=== PATIENT | female | born 1975 | race Two or more races ===

== ENCOUNTER 2017-04-01 17:35 | Emergency (ER) | payer OTHER ==
[2017-04-01 17:40] VITALS: BP 110/66; PULSE 82; TEMP 98.4; BMI 29.2
--- NOTE | 2017-04-01 18:37 | PDOC ---
History of Present Illness - General History Source: Patient, Old Records Exam Limitations: No Limitations - History of Present Illness Initial Comments: 04/01/17 18:59 The patient is a 41 year old female, A4 with a significant past medical history of ectopic pregnancies (x4), who presents to the emergency department after being sent by her PMD for rule out ectopic . The patient reports that her last menstrual cycle was in December 2016. She notes that prior to these missed periods, her menstrual cycle was usually normal and on time. She does report mild left lower quadrant tenderness, without radiation or modifying factors. She does note that she does have fibroids and cysts on the left side and thinks that this may be the cause. The patient denies chest pain, shortness of breath, headache and dizziness. Denies fever, chills, nausea, vomit, diarrhea and constipation. Denies dysuria, frequency, urgency and hematuria. Allergies: None Past surgical history: None reported Social history: No alcohol, tobacco or drug use reported <Sky Ceja - Last Filed: 04/01/17 18:59> <Silver Frias - Last Filed: 04/01/17 20:08> - General Chief Complaint: Pain Stated Complaint: PELVIC PAIN Time Seen by Provider: 04/01/17 18:35 Past History <Syk Ceja - Last Filed: 04/01/17 18:59> - Past Medical History Suicide Attempt (Hx): No Other medical history: NONE - Reproductive History Is Patient Now?: (unk) (#): 5 Para: 1 Cervical CA: No Dysfunctional Uterine Bleeding: No Ectopic : No Endometrial CA: No Polycystic Ovaries: No Therapeutic (s) & number: No Tubal Ligation: No Spontaneous : 4 - Immunization History Td Vaccination: Yes Immunization Up to Date: Yes - Psycho/Social/Smoking Cessation Hx Anxiety: No Suicidal Ideation: No Smoking Status: No Smoking History: Never smoked Number of Cigarettes Smoked Daily: 0 Cigars Per Day: 0 Hx Alcohol Use: No Drug/Substance Use Hx: No Substance Use Type: None <Silver Frias - Last Filed: 04/01/17 20:08> - Past Medical History Allergies/Adverse Reactions: Allergies Allergy/AdvReac Type Severity Reaction Status Date / Time No Known Allergies Allergy Verified 04/01/17 17:40 Home Medications: Ambulatory Orders Ibuprofen [Motrin -] 600 mg PO TID #21 tablet 05/17/15 Review of Systems - Review of Systems Able to Perform ROS?: Yes Comments:: 04/01/17 18:59 CONSTITUTIONAL: No fever, no chills, no fatigue EYES: No visual changes ENT: No ear pain, no sore throat CARDIOVASCULAR: No chest pain, no palpitations RESPIRATORY: No cough, no SOB GI: (+) Left lower quadrant abdominal pain. No nausea, no vomiting, no constipation, no diarrhea GENITOURINARY: No dysuria, no frequency, no hematuria MUSKULOSKELETAL: No backpain, no joint pain, no myalgias SKIN: No rash NEURO: No headache <Sky Ceja - Last Filed: 04/01/17 18:59> *Physical Exam - Vital Signs Last Vital Signs Temp Pulse Resp BP Pulse Ox 98.4 F 82 20 110/66 98 04/01/17 17:36 04/01/17 17:36 04/01/17 17:36 04/01/17 17:36 04/01/17 17:36 <Sky Ceja - Last Filed: 04/01/17 18:59> - Vital Signs Last Vital Signs Temp Pulse Resp BP Pulse Ox 98.4 F 82 20 110/66 98 04/01/17 17:36 04/01/17 17:36 04/01/17 17:36 04/01/17 17:36 04/01/17 17:36 <Silver Frias - Last Filed: 04/01/17 20:08> ED Treatment Course - RADIOLOGY Radiology Studies Ordered: Category Date Time Status TRANSVAGINAL US PREG [US] Stat Ultrasound 04/01/17 18:36 Ordered <Silver Frias - Last Filed: 04/01/17 20:08> Medical Decision Making - Medical Decision Making 04/01/17 20:06 Patient is a well-appearing 41-year-old female who presents with 3 months of amenorrhea. Patient is negative. There are no acute issues at this time. Will discharge with PMD follow-up further evaluation and treatment. <Silver Frias - Last Filed: 04/01/17 20:08> *DC/Admit/Observation/Transfer - Attestations Scribe Attestion: 04/01/17 19:00 Documentation prepared by Sky Ceja, acting as medical aide for Silver Frias MD <Sky Ceja - Last Filed: 04/01/17 18:59> - Attestations Physician Attestion: 04/01/17 20:06 The documentation was prepared by the scribe under my direct supervision. I have reviewed the documentation which correctly represents the findings, medical decision-making and critical action taken by me. <Silver Frias - Last Filed: 04/01/17 20:08> Diagnosis at time of Disposition: Amenorrhea - Discharge Dispostion Disposition: HOME Condition at time of disposition: Stable - Referrals Referrals: pmd, one week [Other] - Patient Instructions Additional Instructions: Urine . Please follow-up with your TICKET WRITER or primary care physician for evaluation of amenorrhea. Return immediately for vaginal bleeding, severe abdominal pain.
== END 2017-04-01 20:16 | disposition home or self-care (01) ==
LOC: JER 17:35
DX: N91.2 Amenorrhea, unspecified (principal); D25.9 Leiomyoma of uterus, unspecified; N83.202 Unspecified ovarian cyst, left side
CPT/HCPCS: 84703; 99283-25

== ENCOUNTER 2017-04-24 14:27 | Inpatient (IN) | payer SELFPAY ==
[2017-04-24 14:30] VITALS: BMI 25.7
[2017-04-24] MEDS ORDERED: morphine CARPU-JECT 2 MG/1 ML DISP.SYRIN IVPUSH ONE (16:39)
--- NOTE | 2017-04-24 16:39 | PDOC ---
History of Present Illness <Michael Hdez - Last Filed: 04/24/17 16:56> - General History Source: Patient Exam Limitations: No Limitations - History of Present Illness Initial Comments: 04/24/17 17:50 The patient is a 41 year old female(A4), with a significant past medical history of ovarian cysts and fibroids, who presents to the emergency department complaining of left lower quadrant pain for 1 day. The patient reports her pain has been constant with associated nausea since this morning. The patient also reports mild pain in the right lower quadrant, but states her left sided pain is more severe. Patient reports she had similar pain 1 year ago, during which her JEWEL CUPPING MACHINE OPERATOR diagnosed her with ovarian cysts. Patient states she had an US done 1 week ago for evaluation of her pelvic pain and to rule out . The US revealed uterine fibroids, thickened endometrium, and small right ovarian cyst( rule out hemorrhagic versus debris laden cyst). Patient states the pain is the worst it has ever been. She denies any vomiting, diarrhea, or constipation. She reports a subjective fever, but denies chills, headache, or dizziness. She denies any vaginal bleeding, vaginal discharge, vaginal odor, dysuria, hematuria , frequency, or urgency. Patient states she has not taken anything for the pain. The patient reports her last menstrual period was 01/17/17, and states she normally gets her periods regularly. Patient reports she had both a urine and blood test last week, which were both negative. Allergies: None reported Past Surgical History: None reported Social History: Non smoker. No ETOH or drug use. JEWEL CUPPING MACHINE OPERATOR: Dr. Haylee Whyte <Adolfo Sexton - Last Filed: 04/24/17 17:50> <Diana Oliveros - Last Filed: 04/25/17 04:32> - General Chief Complaint: Pain Stated Complaint: PAIN Time Seen by Provider: 04/24/17 15:12 Past History - Past Medical History Suicide Attempt (Hx): No Other medical history: none - Reproductive History (#): 5 Para: 1 Cervical CA: No Dysfunctional Uterine Bleeding: No Ectopic : No Endometrial CA: No Polycystic Ovaries: No Therapeutic (s) & number: No Tubal Ligation: No Spontaneous : 4 - Immunization History Td Vaccination: Yes Immunization Up to Date: Yes - Psycho/Social/Smoking Cessation Hx Anxiety: No Suicidal Ideation: No Smoking Status: No Smoking History: Never smoked Have you smoked in the past 12 months: No Number of Cigarettes Smoked Daily: 0 Cigars Per Day: 0 Information on smoking cessation initiated: No Hx Alcohol Use: No Drug/Substance Use Hx: No Substance Use Type: None <LemuelMichael - Last Filed: 04/24/17 16:56> <Adolfo Sexton - Last Filed: 04/24/17 17:50> <Diana Oliveros - Last Filed: 04/25/17 04:32> - Past Medical History Allergies/Adverse Reactions: Allergies Allergy/AdvReac Type Severity Reaction Status Date / Time No Known Allergies Allergy Verified 04/24/17 14:27 Home Medications: Ambulatory Orders Levofloxacin [Levaquin -] 500 mg PO DAILY #7 tablet 04/24/17 Review of Systems - Review of Systems Able to Perform ROS?: Yes Comments:: 04/24/17 17:50 CONSTITUTIONAL: Present: +Subjective Fever No reported: Chills, Diaphoresis, Generalized Weakness, Malaise, Loss of Appetite HEENT: No reported: Rhinorrhea, Nasal Congestion, Throat Pain, Throat Swelling, Difficulty Swallowing, Mouth Swelling, Ear Pain, Eye Pain, Visual Changes CARDIOVASCULAR: No reported: Chest Pain, Syncope, Palpitations, Irregular Heart Rate, Lightheadedness, Peripheral Edema RESPIRATORY: No reported: Cough, Shortness of Breath, SOB with Exertion, Orthopnea, Wheezing , Stridor, Hemoptysis GASTROINTESTINAL: Present: +Left lower quadrant pain, +Nausea No reported: Abdominal Distension, Vomiting, Diarrhea, Constipation, Melena, Hematochezia GENITOURINARY: Present: +Pelvic pain No reported: Dysuria, Frequency, Urgency, Hesitancy, Flank Pain, Genital Pain MUSCULOSKELETAL: No reported: Myalgia, Arthralgia, Joint Swelling, Back pain, Neck Pain SKIN: No reported: Rash, Itching, Pallor HEMEATOLOGIC/IMMUNOLOGIC: No reported: Easy Bleeding, Easy Bruising, Lymphadenopathy, Frequent infections ENDOCRINE: No reported: Unexplained Weight Gain, Unexplained Weight Loss, Heat Intolerance , Cold Intolerance NEUROLOGIC: No reported: Headache, Focal Weakness, Paresthesias, Vertigo, Lightheadedness, Unsteady Gait, Seizure, Mental Status Changes, Incontinence PSYCHIATRIC: No reported: Anxiety, Depression <Sexton,Giomilsy - Last Filed: 04/24/17 17:50> *Physical Exam - Vital Signs Last Vital Signs Temp Pulse Resp BP Pulse Ox 99.8 F H 100 H 18 122/74 100 04/24/17 14:28 04/24/17 14:28 04/24/17 14:28 04/24/17 14:28 04/24/17 14:28 <Michael Hdez - Last Filed: 04/24/17 16:56> - Vital Signs Last Vital Signs Temp Pulse Resp BP Pulse Ox 99.8 F H 100 H 18 122/74 100 04/24/17 14:28 04/24/17 14:28 04/24/17 14:28 04/24/17 14:28 04/24/17 14:28 - Physical Exam Comments: 04/24/17 17:50 GENERAL: The patient is awake, alert, and fully oriented, Nontoxic - in no acute distress. HEAD: Normocephalic, atraumatic. EYES: extraocular movements intact, sclera anicteric, conjunctiva clear. ENT: Normal voice, Moist mucous membranes. NECK: Normal range of motion, supple LUNGS: Breath sounds equal, clear to auscultation bilaterally. No wheezes, no rhonchi, no rales. HEART: Regular rate and rhythm, normal S1 and S2 without murmur, rub or gallop. ABDOMEN:LLQ tenderness, mild suprabpuci tenderness, nor ebound/guarding, no CVA tenderness EXTREMITIES: Normal range of motion, no edema. No clubbing or cyanosis. No cords , erythema, or tenderness. NEUROLOGICAL: No facial asymmetry, Normal speech, PSYCH: Normal mood, normal affect. SKIN: Warm, Dry, normal turgor <Stephanie Sextonomilsy - Last Filed: 04/24/17 17:50> - Vital Signs Last Vital Signs Temp Pulse Resp BP Pulse Ox 98.4 F 90 16 109/64 100 04/24/17 19:14 04/24/17 19:14 04/24/17 19:14 04/24/17 19:14 04/24/17 19:14 <Diana Oliveros - Last Filed: 04/25/17 04:32> ED Treatment Course - LABORATORY CBC & Chemistry Diagram: 04/24/17 16:51 04/24/17 16:51 - Medications Given in the ED: ED Medications Discontinued Medications Generic Name Dose Route Start Last Admin Trade Name Freq PRN Reason Stop Dose Admin Morphine Sulfate 2 mg 04/24/17 16:39 04/24/17 16:57 Morphine Injection - IVPUSH 04/24/17 16:40 2 mg ONCE ONE Administration <Adolfo Sexton - Last Filed: 04/24/17 17:50> - LABORATORY CBC & Chemistry Diagram: 04/24/17 23:17 04/24/17 16:51 - ADDITIONAL ORDERS Additional order review: Laboratory Results 04/24/17 04/24/17 19:01 16:51 Sodium 139 Potassium 3.9 Chloride 103 Carbon Dioxide 27 Anion Gap 9 BUN 9 Creatinine 0.6 Creat Clearance w eGFR > 60 Random Glucose 104 Calcium 8.8 Total Bilirubin 1.3 H AST 24 ALT 28 D Alkaline Phosphatase 68 Total Protein 7.9 Albumin 3.9 Urine Color Susan Urine Appearance Clear Urine pH 5.0 Urine Protein 2+ H Urine Glucose (UA) Negative Urine Ketones Trace H Urine Blood 2+ H Urine Nitrite Negative Urine Bilirubin Negative Urine Urobilinogen 2.0 e.u/dl H Ur Leukocyte Esterase Trace H Urine RBC 50 Urine WBC 5 Ur Epithelial Cells Few Urine Bacteria Many Urine Mucus Moderate Urine HCG, Qual Negative 04/24/17 16:51 RBC 4.66 MCV 88.6 MCHC 34.0 RDW 12.2 MPV 8.4 Neutrophils % 79.4 Lymphocytes % 13.9 Monocytes % 6.2 Eosinophils % 0.0 D Basophils % 0.5 - Medications Given in the ED: ED Medications Discontinued Medications Generic Name Dose Route Start Last Admin Trade Name Freq PRN Reason Stop Dose Admin Morphine Sulfate 2 mg 04/24/17 16:39 04/24/17 16:57 Morphine Injection - IVPUSH 04/24/17 16:40 2 mg ONCE ONE Administration Morphine Sulfate 4 mg 04/24/17 19:20 04/24/17 19:51 Morphine Injection - IVPUSH 04/24/17 19:21 4 mg ONCE ONE Administration <Diana Oliveros - Last Filed: 04/25/17 04:32> Medical Decision Making - Medical Decision Making 04/24/17 16:59 41y fibroids, cysts, presents with LLQ pain x 1 day associated with some nausea, vomiting this AM with subjectieve fever, on exam pt has mild tenderness in the LLQ/adnexa. will obtain blood work will obtain US morphone ifor pain consider possible TOA, oarian cyst, fibroids, diverticulitis A portion of this note was documented by scribe services under my direction. I have reviewed the details of the note, within reason, and agree with the documentation with the following case summary and management plan written by me <Michael Hdez - Last Filed: 04/24/17 16:56> - Medical Decision Making 04/25/17 04:28 I received pt on signout. Pt comes with abdominal pain. Sono shows free fluid in the pelvis, as well as ovarian cyst and a uterine mass that is likely her previous fibroid. Pt has the same findings on Ct scan. She has a UTI and was given levaquin and toradol by myself. Earlier she was teated with morphine. Pt continues to have fever and pelvic pain. I sent off GC/chlamydia urine culture and pt was treated with normal saline and she was admitted to med surg to the hospitalist, as she continues to have rebound and guarding of her abdomen, and she continues to complain of pain. 04/25/17 04:31 Repeat CBC shows a stable Hb/HCT, so free fluid in the pelvis is likely not blood and pt is likely not having hemorrhagic cyst or other bleeding into the pelvis. <Diana Oliveros - Last Filed: 04/25/17 04:32> *DC/Admit/Observation/Transfer <Michael Hdez - Last Filed: 04/24/17 16:56> - Attestations Scribe Attestion: 04/24/17 17:51 Documentation prepared by Adolfo Sexton, acting as medical appointment scheduler for Michael Hdez MD. <Adolfo Sexton - Last Filed: 04/24/17 17:50> - Discharge Dispostion Admit: Yes <Diana Oliveros - Last Filed: 04/25/17 04:32> Diagnosis at time of Disposition: Fibroid uterus, Cystitis, Ovarian cyst, Abdominal pain, Free fluid in pelvis - Discharge Dispostion Condition at time of disposition: Stable - Prescriptions - Referrals - Patient Instructions
[2017-04-24] MEDS ORDERED: morphine CARPU-JECT 2 MG/1 ML DISP.SYRIN ONE (16:42)
[2017-04-24 17:24] LABS: BASOPHIL 0.5 % (0-2.0); MCH 30.1 pg (25.7-33.7); MEAN CELL VOLUME 88.6 fl (80-96); MEAN PLT VOLUME 8.4 fl (7.5-11.1); NEUTROPHILS 79.4 % (42.8-82.8); PLATELET COUNT 266 K/MM3 (134-434); RDW 12.2 % (11.6-15.6); WHITE BLOOD COUNT 12.4 K/mm3 (4.0-10.0)
[2017-04-24 17:52] LABS: ALBUMIN 3.9 g/dl (3.4-5.0); ANION GAP 9 (8-16); BILIRUBIN,TOTAL 1.3 mg/dL (0.2-1.0); CALCIUM 8.8 mg/dL (8.5-10.1); CO2 27 mmol/L (21-32); CREATININE 0.6 mg/dL (0.55-1.02); GLUCOSE,RANDOM 104 mg/dL (74-106); SGOT/AST 24 U/L (15-37); SGPT/ALT 28 U/L (12-78)
[2017-04-24] MEDS ORDERED: morphine CARPU-JECT 4 MG/1 ML DISP.SYRIN IVPUSH ONE (19:20)
[2017-04-24 19:33] LABS: URINE APPEARANCE CLEAR; URINE BILIRUBIN NEGATIVE (NEGATIVE); URINE COLOR AMBER; URINE GLUCOSE (UA) NEGATIVE (NEGATIVE); URINE KETONE TRACE (NEGATIVE); URINE NITRITE NEGATIVE (NEGATIVE); URINE UROBILINOGEN 2.0 E.U/dl E.U./dl (0.2-1.0)
[2017-04-24] MEDS ORDERED: morphine CARPU-JECT 4 MG/1 ML DISP.SYRIN ONE (19:46)
[2017-04-24 19:54] LABS: ALK PHOS 68 U/L (45-117); TOT PROT 7.9 g/dl (6.4-8.2)
[2017-04-24 19:54] LABS: URINE BLOOD 2+ (NEGATIVE); URINE LEUK ESTERASE TRACE (NEGATIVE); URINE PROTEIN 2+ (NEGATIVE)
[2017-04-24 20:41] LABS: URINE BACTERIA MANY /hpf (NONE SEEN); URINE MUCUS MODERATE; URINE RBC 50 /hpf (0-3); URINE WBC 5 /hpf (3-5)
[2017-04-24] MEDS ORDERED: SODIUM CHLORIDE 0.9% 500 ML INFUS.BAG IV ONE ×2 (21:08→23:22)
[2017-04-24] MEDS ORDERED: LEVOFLOXACIN 500 MG IVPB 100 ML IVPB ONE ×2 (21:08→21:24)
[2017-04-24] MEDS ORDERED: KETOROLAC TROMETHAMINE 30 MG/1 ML VIAL IVPUSH ONE (22:43)
[2017-04-24] MEDS ORDERED: KETOROLAC TROMETHAMINE 30 MG/1 ML VIAL ONE (23:07)
[2017-04-24] MEDS ORDERED: ACETAMINOPHEN 325 MG TABLET (FP) PO ONE (23:22)
[2017-04-24 23:47] LABS: BASOPHIL 0.5 % (0-2.0); MCH 30.3 pg (25.7-33.7); MCHC 34.5 g/dl (32.0-36.0); MEAN CELL VOLUME 87.8 fl (80-96); MEAN PLT VOLUME 8.1 fl (7.5-11.1); NEUTROPHILS 81.4 % (42.8-82.8); PLATELET COUNT 222 K/MM3 (134-434); RDW 12.2 % (11.6-15.6); WHITE BLOOD COUNT 11.8 K/mm3 (4.0-10.0)
[2017-04-25] MEDS ORDERED: ACETAMINOPHEN 325 MG TABLET (FP) ONE (00:09)
[2017-04-25] MEDS ORDERED: AZITHROMYCIN 1 GM PACKET PO ONE (00:13)
[2017-04-25] MEDS ORDERED: morphine CARPU-JECT 2 MG/1 ML DISP.SYRIN IVPUSH PRN (00:15)
[2017-04-25] MEDS ORDERED: CEFTRIAXONE 2 GM in DEXTROSE 5%-WATER - 100 ML IVPB SCH (00:15)
--- NOTE | 2017-04-25 00:15 | PN ---
Teaching Attending Note Name of Resident: Jamil Person ATTENDING PHYSICIAN STATEMENT I saw and evaluated the patient. I reviewed the resident's note and discussed the case with the resident. I agree with the resident's findings and plan as documented. SUBJECTIVE: Patient is a 41yo female presented with fever, and chills, with nausea and vomiting. 1st time having severe abdominal pain LLQ area , denies radiating to the back or groin area. OBJECTIVE: Vital Signs Temperature 98.3 F 04/24/17 22:37 Pulse Rate 89 04/24/17 22:37 Respiratory Rate 17 04/24/17 22:37 Blood Pressure 117/68 04/24/17 22:37 O2 Sat by Pulse Oximetry (%) 100 04/24/17 22:37 GENERAL: The patient is awake, alert, and fully oriented, in mild distress. HEAD: Normocephalic, atraumatic. EYES: extraocular movements intact, sclera anicteric, conjunctiva clear. ENT: Normal voice, Moist mucous membranes. NECK: Normal range of motion, supple LUNGS: Breath sounds equal, clear to auscultation bilaterally. No wheezes, no rhonchi, no rales. HEART: Regular rate and rhythm, normal S1 and S2 without murmur, rub or gallop. ABDOMEN:moderate LLQ tenderness, with mild suprapubic tenderness, no rebound , positive for voluntary guarding, no CVA tenderness EXTREMITIES: Normal range of motion, no edema. No clubbing or cyanosis. No cords , erythema, or tenderness. NEUROLOGICAL: No facial asymmetry, Normal speech, PSYCH: Normal mood, normal affect. SKIN: Warm, Dry, normal turgor CBCD WBC 11.8 K/mm3 (4.0-10.0) H 04/24/17 23:17 RBC 3.99 M/mm3 (3.60-5.2) 04/24/17 23:17 Hgb 12.1 GM/dL (10.7-15.3) D 04/24/17 23:17 Hct 35.0 % (32.4-45.2) D 04/24/17 23:17 MCV 87.8 fl (80-96) 04/24/17 23:17 MCHC 34.5 g/dl (32.0-36.0) 04/24/17 23:17 RDW 12.2 % (11.6-15.6) 04/24/17 23:17 Plt Count 222 K/MM3 (134-434) 04/24/17 23:17 MPV 8.1 fl (7.5-11.1) 04/24/17 23:17 CMP Sodium 139 mmol/L (136-145) 04/24/17 16:51 Potassium 3.9 mmol/L (3.5-5.1) 04/24/17 16:51 Chloride 103 mmol/L (98-107) 04/24/17 16:51 Carbon Dioxide 27 mmol/L (21-32) 04/24/17 16:51 Anion Gap 9 (8-16) 04/24/17 16:51 BUN 9 mg/dL (7-18) 04/24/17 16:51 Creatinine 0.6 mg/dL (0.55-1.02) 04/24/17 16:51 Creat Clearance w eGFR > 60 (>60) 04/24/17 16:51 Random Glucose 104 mg/dL (74-106) 04/24/17 16:51 Calcium 8.8 mg/dL (8.5-10.1) 04/24/17 16:51 Total Bilirubin 1.3 mg/dL (0.2-1.0) H 04/24/17 16:51 AST 24 U/L (15-37) 04/24/17 16:51 ALT 28 U/L (12-78) D 04/24/17 16:51 Alkaline Phosphatase 68 U/L (45-117) 04/24/17 16:51 Total Protein 7.9 g/dl (6.4-8.2) 04/24/17 16:51 Albumin 3.9 g/dl (3.4-5.0) 04/24/17 16:51 Current Medications Generic Name Dose Route Start Last Admin Trade Name Freq PRN Reason Stop Dose Admin Azithromycin 1 gm 04/25/17 00:13 Zithromax - PO 04/25/17 00:14 ONCE ONE Ceftriaxone Sodium 2 gm/ 100 mls @ 200 mls/hr 04/25/17 00:15 Dextrose IVPB DAILY CURTIS Metronidazole 100 mls @ 100 mls/hr 04/25/17 02:00 Flagyl 500mg Premixed Ivpb - IVPB Q8H-IV CURTIS Home Medications Medication Instructions Recorded Levofloxacin [Levaquin -] 500 mg PO DAILY #7 tablet 04/24/17 CT scan of Abdomen and pelvis: reviewed, positive for fibroids and free fluid within the cul de sac, leomyoma increase in size 7.7 from 6.2cm ASSESSMENT AND PLAN: This patient is a 41 year old female(A4), with a significant past medical history of ovarian cysts and fibroids, who presents to the emergency department complaining of left lower quadrant pain for 1 day. Pain is associated with Nausea and vomiting started mostly this morning. # Acute sepsis of Unknown origin; septic w/u ordered, lactic acid trend. Rocephin 2gm IV daily and one dose now, Flagyl 500mg IV q8, 1st dose now.Zithromax 1gm x once now , ID consult for furhter evaluation, obgyn consult,, IVF, morphine foe pain # Acute left lower quadrant of abdomen with sepsis r/o PID septic w/u and culture is pending , repaet LFTs # Hx of ectopic x 4, will check TSH DVt Px: SCDs, early ambulation
[2017-04-25] MEDS ORDERED: AZITHROMYCIN 250 MG TABLET (FP) ONE (00:22)
--- NOTE | 2017-04-25 00:27 | HP ---
CHIEF COMPLAINT: abd pain PCP: Dr. Whyte HISTORY OF PRESENT ILLNESS: 41 y/o A4 w/PMH of ectopic x4 presents to ER w/abd pain that started today and has been coming and going and rated as an 8/10 at its worst. She saw her PCP today who recommended she come to the ER. Pain is located across lower abdomen but worse in LLQ. Pt states shes had chronic pain there for some time now but it has not bothered her until today when it became an 8/ 10 pain. This is the first time the pain has become this severe. She also states she's felt nauseous and has thrown up twice today (non-bloody vomit), last time being in the ER about 30 min before this interview and has not eaten today due to nausea but has been able to drink water. She also c/o fevers, chills, and headache. She denies any change in diet lately, pain with food or water, diarrhea, pain with defecation or urination, blood in stool or urine, CP , SOB, light-headedness, vaginal bleeding, vaginal discharge. Does not see an coronary care unit nurse. Last menses was last week of December. ER course was notable for: (1) levaquin, morphine, toradol, abd/pelvis CT, bladder US (2) (3) PAST MEDICAL HISTORY: ectopic x4 PAST SURGICAL HISTORY: 1 Social History: Smoking: denies Alcohol: denies Drugs: denies Allergies No Known Allergies Allergy (Verified 04/24/17 14:27) HOME MEDICATIONS: Home Medications Medication Instructions Recorded Levofloxacin [Levaquin -] 500 mg PO DAILY #7 tablet 04/24/17 REVIEW OF SYSTEMS CONSTITUTIONAL: +fevers, chills Absent: malaise, loss of appetite CARDIOVASCULAR: Absent: chest pain, syncope, lightheadedness RESPIRATORY: Absent: cough, shortness of breath GASTROINTESTINAL: +abd pain, nausea, vomiting Absent: diarrhea, constipation, melena, hematochezia GENITOURINARY: Absent: dysuria, hematuria NEUROLOGIC: +headache Absent: dizziness, mental status changes PHYSICAL EXAMINATION Vital Signs - 24 hr 04/24/17 04/24/17 04/24/17 14:28 19:14 19:25 Temperature 99.8 F H 98.4 F Pulse Rate 100 H Pulse Rate [ 90 Right Radial] Respiratory 18 16 Rate Blood Pressure 122/74 Blood Pressure 109/64 [Left Arm] O2 Sat by Pulse 100 100 100 Oximetry (%) 04/24/17 22:37 Temperature 98.3 F Pulse Rate Pulse Rate [ 89 Right Radial] Respiratory 17 Rate Blood Pressure Blood Pressure 117/68 [Left Arm] O2 Sat by Pulse 100 Oximetry (%) GENERAL: Awake, alert, and fully oriented. HEAD: Normal with no signs of trauma. EYES: extraocular movements intact, sclera anicteric, conjunctiva clear. No lid lag. EARS, NOSE, THROAT: Ears normal, nares patent, oropharynx clear without exudates. NECK: Normal range of motion, supple without lymphadenopathy LUNGS: Breath sounds equal, clear to auscultation bilaterally. No wheezes, and no crackles. No accessory muscle use. HEART: Regular rate and rhythm, normal S1 and S2 without murmur, rub or gallop. ABDOMEN: +abd pain LLQ and RLQ (worse in LLQ), hypoactive bowel sounds. MUSCULOSKELETAL: No bony deformities or tenderness. No CVA tenderness. LOWER EXTREMITIES: warm, well-perfused. No calf tenderness. No peripheral edema. NEUROLOGICAL: Normal speech. Gait not observed. PSYCHIATRIC: Cooperative. Good eye contact. Appropriate mood and affect. SKIN: Warm, diaphoretic. Laboratory Results - last 24 hr 04/24/17 04/24/17 04/24/17 16:51 16:51 19:01 WBC 12.4 H RBC 4.66 Hgb 14.0 Hct 41.3 MCV 88.6 MCHC 34.0 RDW 12.2 Plt Count 266 MPV 8.4 Neutrophils % 79.4 Lymphocytes % 13.9 Monocytes % 6.2 Eosinophils % 0.0 D Basophils % 0.5 Sodium 139 Potassium 3.9 Chloride 103 Carbon Dioxide 27 Anion Gap 9 BUN 9 Creatinine 0.6 Creat Clearance w eGFR > 60 Random Glucose 104 Calcium 8.8 Total Bilirubin 1.3 H AST 24 ALT 28 D Alkaline Phosphatase 68 Total Protein 7.9 Albumin 3.9 Urine Color Susan Urine Appearance Clear Urine pH 5.0 Ur Specific [place] 1.020 Urine Protein 2+ H Urine Glucose (UA) Negative Urine Ketones Trace H Urine Blood 2+ H Urine Nitrite Negative Urine Bilirubin Negative Urine Urobilinogen 2.0 e.u/dl H Ur Leukocyte Esterase Trace H Urine RBC 50 Urine WBC 5 Ur Epithelial Cells Few Urine Bacteria Many Urine Mucus Moderate Urine HCG, Qual Negative 04/24/17 23:17 WBC 11.8 H RBC 3.99 Hgb 12.1 D Hct 35.0 D MCV 87.8 MCHC 34.5 RDW 12.2 Plt Count 222 MPV 8.1 Neutrophils % 81.4 Lymphocytes % 11.7 Monocytes % 6.4 Eosinophils % 0.0 Basophils % 0.5 Sodium Potassium Chloride Carbon Dioxide Anion Gap BUN Creatinine Creat Clearance w eGFR Random Glucose Calcium Total Bilirubin AST ALT Alkaline Phosphatase Total Protein Albumin Urine Color Urine Appearance Urine pH Ur Specific [place] Urine Protein Urine Glucose (UA) Urine Ketones Urine Blood Urine Nitrite Urine Bilirubin Urine Urobilinogen Ur Leukocyte Esterase Urine RBC Urine WBC Ur Epithelial Cells Urine Bacteria Urine Mucus Urine HCG, Qual Imaging: CT abd/pelvis: Impression: 2 cm involuting left ovarian cyst. A small to moderate amount of free fluid is noted within the cul-de-sac. In comparison to a previous CT study of 05/17/2015 interval enlargement of a nonspecific spherical lesion is noted within the uterine body posteriorly currently measuring 9.1 cm in diameter, previously 6.3 cm. On a statistical basis this lesion probably represents a leiomyoma. On the current exam the lesion demonstrates low attenuation centrally which may be on the basis of degenerative change. The prior study was performed without intravenous contrast and therefore comparison is difficult in this regard. Diffuse hepatic steatosis. US pelvic/bladder Impression: An approximately 7.7 cm uterine leiomyoma is noted. This leiomyoma has apparently mildly increased in size in comparison to an ultrasound study of 05/17/2015 (previously described as measuring 6.3 cm in diameter). 2 cm unilocular left ovarian cyst. No definite Doppler evidence of left ovarian torsion. Small amount of free fluid within the cul-de-sac. The right ovary could not be definitely identified. Active Medications Acetaminophen (Tylenol -) 650 mg PO Q6H PRN PRN Reason: FEVER Ceftriaxone Sodium 2 gm/ (Dextrose) 100 mls @ 200 mls/hr IVPB DAILY CURTIS Metronidazole (Flagyl 500mg Premixed Ivpb -) 100 mls @ 100 mls/hr IVPB Q8H-IV CURTIS Sodium Chloride (Normal Saline -) 1,000 mls @ 150 mls/hr IV ASDIR CURTIS Last Admin: 04/25/17 00:34 Dose: 150 mls/hr Morphine Sulfate (Morphine Injection -) 1 mg IVPUSH Q4H PRN PRN Reason: PAIN ASSESSMENT/PLAN: 41 y/o A4 w/PMH of ectopic x4 presents to ER w/abd pain that started today and is admitted for possible sepsis secondary etiology. Also found to have increase in size of leiomyoma. -Sepsis secondary to unknown etiology at this time. -SIRS 2/4+ (tachy, wbc) -azithro 1 g po once, ceftriaxone 2g iv qd, flagyl 500 mg iv q8h (also given levaquin in ER) -tylenol 650 mg po prn for fevers -NS @ 150 ml/hr (bolused w/2L in ER) -f/u BCx, UCx, TSH -ID consulted -Abdominal pain -likely secondary to ovarian cyst vs leiomyoma vs PID -f/u direct bili, elevated at this time -nausea: zofran 4mg iv q6h prn -morphine 1mg IV q4h prn for pain -Asset Liability Analyst consulted -Hx of ectopic x4 -f/u TSH -DVT ppx -SCDs -FEN -NS @ 150 ml/hr -monitor electrolytes -Regular diet -Dispo: -Admit to m/s Visit type - Emergency Visit Emergency Visit: Yes ED Registration Date: 04/25/17 Care time: The patient presented to the Emergency Department on the above date and was hospitalized for further evaluation of their emergent condition. - New Patient This patient is new to me today: Yes Date on this admission: 04/25/17 - Critical Care Critical Care patient: No
[2017-04-25] MEDS: SODIUM CHLORIDE 1,000 ML IV SCH ×4 (00:34→19:28)
[2017-04-25] MEDS ORDERED: cefTRIAXone 2 GM/100 ML BAG (PRE-DOCKED) IVPB SCH (00:45)
[2017-04-25] MEDS ORDERED: CEFTRIAXONE 100 ML IVPB ONE (01:12)
[2017-04-25] MEDS ORDERED: METRONIDAZOLE 500 MG PREMIXED 100 ML IVPB SCH (02:00)
[2017-04-25] MEDS ORDERED: ONDANSETRON 4 MG/2 ML VIAL IVPUSH PRN (05:31)
[2017-04-25 08:05] LABS: INR 1.37 (0.82-1.09); PROTHROMBIN TIME (PATIENT) 15.2 SEC (9.98-11.88)
[2017-04-25 08:16] LABS: ALBUMIN 2.7 g/dl (3.4-5.0); ANION GAP 8 (8-16); BILIRUBIN,TOTAL 0.6 mg/dL (0.2-1.0); CALCIUM 7.1 mg/dL (8.5-10.1); CO2 23 mmol/L (21-32); CREATININE 0.5 mg/dL (0.55-1.02); GLUCOSE,RANDOM 130 mg/dL (74-106); MAGNESIUM 1.9 mg/dL (1.8-2.4); SGOT/AST 24 U/L (15-37); SGPT/ALT 22 U/L (12-78)
[2017-04-25 08:24] LABS: ALK PHOS 51 U/L (45-117); THYROID STIMULATING HORMONE 1.84 uIU/ml (0.358-3.74)
--- NOTE | 2017-04-25 08:41 | PN ---
Physical Exam: SUBJECTIVE: Patient seen and examined. says she had nonbloody bilious vomiting x4 last night and feels nauseas this morning. her abdominal pain has improved since admission with tylenol. denies dysuria, chest pain, sob, diarrhea, constipation, fever. OBJECTIVE: Vital Signs Period Temp Pulse Resp BP Sys/Pettit Pulse Ox Last 24 Hr 98.4 F-99.2 F 86-98 16-18 90-106/58-61 99-99 GENERAL: The patient is awake, alert, and fully oriented, in no acute distress. HEAD: Normal with no signs of trauma. EYES: PERRL, extraocular movements intact, sclera anicteric, conjunctiva clear. No ptosis. ENT: Ears normal, nares patent, oropharynx clear without exudates, moist mucous membranes. NECK: Trachea midline, full range of motion, supple. LUNGS: Breath sounds equal, clear to auscultation bilaterally, no wheezes, no crackles, no accessory muscle use. HEART: Regular rate and rhythm, S1, S2 without murmur, rub or gallop. ABDOMEN: Soft, nontender, nondistended, normoactive bowel sounds, no guarding, no rebound, no hepatosplenomegaly, no masses. psoas and obturator sign negative. EXTREMITIES: 2+ radial and dp pulses, warm, well-perfused, no edema. NEUROLOGICAL: Cranial nerves II through XII grossly intact. Normal speech, facial symmetry PSYCH: Normal mood, normal affect. SKIN: Warm, dry, normal turgor, no rashes or lesions noted Laboratory Results - last 24 hr 04/25/17 04/25/17 04/25/17 01:50 06:45 06:45 INR 1.37 H Sodium 140 Potassium 4.7 D Chloride 109 H Carbon Dioxide 23 Anion Gap 8 BUN 8 Creatinine 0.5 L Creat Clearance w eGFR > 60 Random Glucose 130 H D Lactic Acid 0.9 Calcium 7.1 L Magnesium 1.9 Total Bilirubin 0.6 D AST 24 ALT 22 D Alkaline Phosphatase 51 D Total Protein 6.0 L D Albumin 2.7 L D TSH 1.84 Active Medications Generic Name Dose Route Start Last Admin Trade Name Freq PRN Reason Stop Dose Admin Acetaminophen 650 mg 04/25/17 00:16 Tylenol - PO Q6H PRN FEVER Ceftriaxone Sodium 2 gm 04/25/17 00:45 04/25/17 01:10 Rocephin 2gm Ivpb (Pre-Docked) IVPB 2 gm DAILY@2200 CURTIS Administration Metronidazole 100 mls @ 100 mls/hr 04/25/17 02:00 04/25/17 02:17 Flagyl 500mg Premixed Ivpb - IVPB 100 mls/hr Q8H-IV CURTIS Administration Sodium Chloride 1,000 mls @ 150 mls/hr 04/25/17 00:15 04/25/17 02:17 Normal Saline - IV 150 mls/hr ASDIR CURTIS Administration Morphine Sulfate 1 mg 04/25/17 00:15 Morphine Injection - IVPUSH Q4H PRN PAIN Ondansetron HCl 4 mg 04/25/17 05:31 04/25/17 05:59 Zofran Injection IVPUSH 4 mg Q6H PRN Administration NAUSEA AND/OR VOMITING CT shows normal appendix/gallbladder, lucency abnormality in pelvis Active Medications Acetaminophen (Tylenol -) 650 mg PO Q6H PRN PRN Reason: FEVER Sodium Chloride (Normal Saline -) 1,000 mls @ 150 mls/hr IV ASDIR CURTIS Last Admin: 04/25/17 10:08 Dose: 150 mls/hr Doxycycline Hyclate 100 mg/ (Dextrose) 100 mls @ 100 mls/hr IVPB BID CURTIS Cefoxitin Sodium 2 gm/ (Dextrose) 100 mls @ 100 mls/hr IVPB Q6H-IV CURTIS Last Admin: 04/25/17 10:45 Dose: 100 mls/hr Ondansetron HCl (Zofran Injection) 4 mg IVPUSH Q6H PRN PRN Reason: NAUSEA AND/OR VOMITING Last Admin: 04/25/17 05:59 Dose: 4 mg ASSESSMENT/PLAN: 41 yr old woman with a hx of ectopic pregnancies presents with lower abdominal pain, fevers, with n/v, admitted for SIRS(wbc, HR) secondary to PID or UTI. - differentials for lower abdominal in this patient include ruptured ovarian cyst, or PID. #SIRS PID or UTI - evaluated by ID, ceftoxitin 2gm ivpb q6h and doxycyline 100ml ivpb BID for pid coverage - chlamydia, gonorrhea pending - u/a with trace leukesterase, pt has no complaints of dysuria, will repeat u/a , since she has already been started on abx will not add urine culture - IVF NS @150mll/hr until taking adequate po - pending evaluation by obstetrics/gynecology nurse Dr. Hampton #Emesis - likely from pain, zofran prn 4mg q6hr - regular diet as tolerated DVT - SCD's Diet: regular pain: tylenol Visit type - Emergency Visit Emergency Visit: No - New Patient This patient is new to me today: Yes Date on this admission: 04/25/17 - Critical Care Critical Care patient: No
--- NOTE | 2017-04-25 09:59 | PN ---
Progress Note (short form) - Note Progress Note: ID Full note dictated Advise COMMERCIAL ASSISTANT evaluation STD screening HIV testing Cefoxitin and doxycycline Rommel RUSSELL Problem List - Problems (1) Pelvic inflammatory disease (PID) Code(s): N73.9 - FEMALE PELVIC INFLAMMATORY DISEASE, UNSPECIFIED
[2017-04-25] MEDS ORDERED: PT OWN MED DRAWER 7, Y5N ONE ×3 (10:09→20:51)
[2017-04-25] MEDS ORDERED: cefOXitin SODIUM 2 GM VIAL (RESTRICTED TO ID) IVPB SCH (10:15)
--- NOTE | 2017-04-25 10:26 | CONS ---
DATE OF CONSULTATION: DATE OF DICTATION: 04/25/2017 HISTORY OF PRESENT ILLNESS: This is a 41-year-old Polish female with a history of prior ectopic pregnancies who presented to the emergency room with a chief complaint of abdominal pain, which started on the day of admission. It was described as 8 out of 10 in severity. It was recommended by her primary care doctor that she come to the hospital and be admitted. The pain was predominantly across the lower abdomen, particularly left lower quadrant. She felt nauseous and had thrown up at least two times on the day of admission. She also noted fever and chills, though here had only low-grade fever. She denied any vaginal bleeding or vaginal discharge. She had a CT scan of the abdomen, which compared to 2015, showed an interval enlargement of a non-specific spherical lesion in the uterine body posteriorly possibly representing a leiomyoma. On the current examination, there was low attenuation centrally, which might represent a degenerative change. I am asked to see her for further evaluation and treatment. PAST MEDICAL HISTORY: Notable for section and ectopic x4. PHYSICAL EXAMINATION: Vital signs: The temperature was 98.7, pulse 90/58, respirations 18. Neck: Supple. Lungs: Clear. Heart: S1, S2, regular rhythm. Abdomen: Positive bowel sounds. Soft. Suprapubic left lower quadrant tenderness noted. LABORATORY DATA: The white count was 12.4 on admission, hemoglobin 14, platelets 266. Liver enzymes within normal limits. Urinalysis with 50 RBCs, 5 RBCs, many bacteria. test negative. GC and chlamydia pro urine pending. ASSESSMENT: This 41-year-old female with leiomyoma possibly presents now with abdominal pain, low-grade fever, chills, and elevated white blood cell count. Differential diagnosis would include degenerating fibroid, possible pelvic inflammatory disease. At this point, would treat her for the latter with a combination of cefoxitin and doxycycline, screen her for HIV infection, and await BUSINESS COMMUNICATIONS INSTRUCTOR formal evaluation. ANDREA SPANN M.D. [id number] MTDD
[2017-04-25] MEDS ORDERED: CEFOXITIN SODIUM IVPB SCH (10:30)
[2017-04-25] MEDS ORDERED: SODIUM CHLORIDE IVPB SCH (10:30)
[2017-04-25] MEDS: CEFOXITIN SODIUM 2 GM in DEXTROSE 5%-WATER - 100 ML IVPB SCH ×3 (10:45→20:57)
[2017-04-25 11:30] LABS: HIV 1 & 2 AB NEGATIVE; HIV 1 AGp24 NEGATIVE
[2017-04-25] MEDS: DOXYCYCLINE INJECTION 100 MG in DEXTROSE 5%-WATER - 100 ML IVPB SCH ×2 (11:33→21:53)
--- NOTE | 2017-04-25 11:40 | PN ---
Teaching Attending Note Name of Resident: Catherine Lemon ATTENDING PHYSICIAN STATEMENT I saw and evaluated the patient. I reviewed the resident's note and discussed the case with the resident. I agree with the resident's findings and plan as documented. SUBJECTIVE:pain has improved. continues to have some nausea but able to eat without difficulty. had similar symptoms 5 years ago but not as severe. never been treated for STD in the past. denies Cp, SOB,fever, chills, V/C/D, dysuria, urinary frequency, hematuria OBJECTIVE: Last Vital Signs Temp Pulse Resp BP Pulse Ox 98.4 F 86 18 90/58 99 04/25/17 06:00 04/25/17 06:00 04/25/17 06:00 04/25/17 06:00 04/25/17 05:00 General NAD CV S1 S2 RRR no murmur/rub/gallop Lungs CTA B/l no wheezing/rales/rhonchi Abdomen +LLQ tenderness, +guarding. soft ND normoactive BS. no suprapubic tenderness Extremities no pedal edema ASSESSMENT AND PLAN: 41yo f wtih PMH multiple ectopic pregnancies presented to the ER with abdominal pain was admitted 1. SIRS likely due to pelvic pathology- high suspicion for ruptured ovarian cyst but cannot r/o PID. ceftriaxone/falgyl switched to Cefoxitin and doxy. awaiting HISTOLOGY TECHNOLOGIST evaluation. STD, HIV testing pending. cont IVF, nausea and pain control 2. SIRS- possible PID vs stress inflammatory induced. cont IVF, abx as above. 3. Proteinuria- likely dehydration component. repeat UA 4. DVT ppx- EAM
[2017-04-25] MEDS: ACETAMINOPHEN 325 MG TABLET (FP) PO PRN ×2 (11:56→19:25)
[2017-04-25 14:53] LABS: BASOPHIL 0.6 % (0-2.0); EOSINOPHIL 0.1 % (0-4.5); MCH 30.6 pg (25.7-33.7); MCHC 33.7 g/dl (32.0-36.0); MEAN PLT VOLUME 8.3 fl (7.5-11.1); NEUTROPHILS 83.6 % (42.8-82.8); PLATELET COUNT 210 K/MM3 (134-434); RDW 12.5 % (11.6-15.6)
[2017-04-25 22:17] LABS: URINE APPEARANCE CLEAR; URINE BILIRUBIN NEGATIVE (NEGATIVE); URINE COLOR LTYELLOW; URINE GLUCOSE (UA) NEGATIVE (NEGATIVE); URINE KETONE NEGATIVE (NEGATIVE); URINE LEUK ESTERASE NEGATIVE (NEGATIVE); URINE NITRITE NEGATIVE (NEGATIVE); URINE PROTEIN NEGATIVE (NEGATIVE); URINE UROBILINOGEN 4.0 E.U/dl E.U./dl (0.2-1.0)
[2017-04-25 22:25] LABS: URINE BLOOD 1+ (NEGATIVE)
[2017-04-25 22:26] LABS: URINE BACTERIA RARE /hpf (NONE SEEN); URINE MUCUS RARE; URINE RBC 2 /hpf (0-3); URINE WBC 1 /hpf (3-5)
[2017-04-26] MEDS ORDERED: PT OWN MED DRAWER 7, Y5N ONE ×4 (02:32→21:16)
[2017-04-26] MEDS: CEFOXITIN SODIUM 2 GM in DEXTROSE 5%-WATER - 100 ML IVPB SCH ×4 (02:34→21:21)
[2017-04-26] MEDS: ACETAMINOPHEN 325 MG TABLET (FP) PO PRN (05:44)
[2017-04-26] MEDS: SODIUM CHLORIDE 1,000 ML IV SCH (05:45)
[2017-04-26] MEDS: DOXYCYCLINE INJECTION 100 MG in DEXTROSE 5%-WATER - 100 ML IVPB SCH ×2 (11:16→22:15)
--- NOTE | 2017-04-26 12:17 | PN ---
Progress Note (short form) - Note Progress Note: currently Current Medications Generic Name Dose Route Start Last Admin Trade Name Freq PRN Reason Stop Dose Admin Acetaminophen 650 mg 04/25/17 00:16 04/26/17 05:44 Tylenol - PO 650 mg Q6H PRN Administration FEVER Sodium Chloride 1,000 mls @ 150 mls/hr 04/25/17 00:15 04/26/17 05:45 Normal Saline - IV 150 mls/hr ASDIR CURTIS Administration Doxycycline Hyclate 100 mg/ 100 mls @ 100 mls/hr 04/25/17 10:00 04/26/17 11:16 Dextrose IVPB 100 mls/hr BID CURTIS Administration Cefoxitin Sodium 2 gm/ 100 mls @ 100 mls/hr 04/25/17 10:30 04/26/17 08:38 Dextrose IVPB 100 mls/hr Q6H-IV CURTIS Administration Ondansetron HCl 4 mg 04/25/17 05:31 04/25/17 05:59 Zofran Injection IVPUSH 4 mg Q6H PRN Administration NAUSEA AND/OR VOMITING Last Vital Signs Temp Pulse Resp BP Pulse Ox 98.8 F 80 20 102/62 99 04/26/17 08:41 04/26/17 08:41 04/26/17 08:41 04/26/17 08:41 04/25/17 21:00 General NAD CV S1 S2 RRR no murmur/rub/gallop Lungs CTA B/l no wheezing/rales/rhonchi Abdomen +LLQ tenderness, +guarding. soft ND normoactive BS. no suprapubic tenderness Extremities no pedal edema ASSESSMENT AND PLAN: 41yo f wtih PMH multiple ectopic pregnancies presented to the ER with abdominal pain was admitted 1. SIRS likely due to pelvic pathology- high suspicion for ruptured ovarian cyst but cannot r/o PID. clinically improved. awaiting SUPERVISOR BEET END evaluation, will see today. on Cefoxitin and doxy day 2. STD, HIV testing pending. d/c IVF. cont nausea and pain control 2. SIRS- possible PID vs stress inflammatory induced. cont IVF, abx as above. 3. Proteinuria- likely dehydration component. repeat UA shows now resolved 4. DVT ppx- EAM Visit type - Emergency Visit Emergency Visit: Yes ED Registration Date: 04/25/17 Care time: The patient presented to the Emergency Department on the above date and was hospitalized for further evaluation of their emergent condition. - New Patient This patient is new to me today: No - Critical Care Critical Care patient: No - Discharge Referral Referred to [facility] No
--- NOTE | 2017-04-26 20:25 | CON.OBG ---
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 she came to ER on 04/01/17 for blood test to check for pregnacy, it was neg . she nneka not have any pain then sudden onset of pain experienced on 04/24/17 . Past MH cycle 28-30 days , regular, moderate, 4 days ,no pain. Contraception none Past OB Hx : Primary C/section 07/29/2001 at [facility] for FTP h/o ? ectopic preg x4, patient did not have any surgery for ectopic pregn, . She does not know if she was given special meds like Methotrexate for tretment of ectopic pregn. 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 h/o last pap in 09/2015 , normal as per patient. 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 No: UTI Reproductive: Yes: Ectopic (x4? ), Fibroids ...LMP: 01/18/17 ...: No ...: 5 ...Para: 1 (c/section 07/29/2001 ) Infectious Disease: No: STD's Psych: Yes: Anxiety - Past Surgical History Past Surgical History: Yes: (07/29/2001 ). 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 Home Medications - Allergies Allergies/Adverse Reactions: Allergies Allergy/AdvReac Type Severity Reaction Status Date / Time No Known Allergies Allergy Verified 04/24/17 14:27 - Home Medications Home Medications: Ambulatory Orders Levofloxacin [Levaquin -] 500 mg PO DAILY #7 tablet 04/24/17 Physical Exam-COUNTY HOME DEMONSTRATOR Vital Signs: Vital Signs Temperature 99.1 F 04/26/17 14:53 Pulse Rate 83 04/26/17 14:53 Respiratory Rate 20 04/26/17 14:53 Blood Pressure 94/57 04/26/17 14:53 O2 Sat by Pulse Oximetry (%) 99 04/26/17 09:00 Selected Entries 04/25/17 04/26/17 04/26/17 22:17 02:00 06:00 Temperature 100.5 F H 99.5 F 100.4 F H 04/26/17 14:53 Temperature 99.1 F Constitutional: Yes: Well Nourished, Obese Eyes: Yes: WNL HENT: Yes: WNL, Normocephalic Neck: Yes: WNL Cardiovascular: Yes: WNL, Regular Rate and Rhythm Respiratory: Yes: WNL Gastrointestinal: Yes: WNL, Normal Bowel Sounds. No: Tenderness, Epigastrium, Tenderness, Rebound, Vomiting Renal/: No: CVA Tenderness - Left, CVA Tenderness - Right Pelvis: Yes: Mass (abdominopelvic mass 16 weeks size firm tender), Tenderness External Genitalia: Yes: Normal Internal Exam Deferred: Yes Vaginal Exam: Yes: Normal, Discharge (normal discharge homgenous) Cervix: Yes: Normal, Bleeding (light staining of blood noted at os). No: Cerv Motion Tenderness, Condyloma Uterus: Yes: Freely Moveable, Anteverted, Enlarged (16 weeks size, no seprate mass can be felt), Tender Adnexa: Normal: Bilateral, Not Palpable: Bilateral Breast(s): Yes: WNL Musculoskeletal: Yes: WNL Extremities: Yes: WNL. No: Calf Tenderness Edema: No Integumentary: Yes: WNL, Incision (old pfannensteil scar) Neurological: Yes: WNL, Alert, Oriented ...Motor Strength: WNL Psychiatric: Yes: WNL, Alert, Oriented Labs: CBC, BMP 04/25/17 06:45 04/25/17 06:45 Laboratory Tests 0704/25/17 04/25/17 00:20 06:45 10:20 ESR INR 1.37 H C-Reactive Protein 15.8 H Urine Blood Ur Leukocyte Esterase Urine RBC Urine WBC C.trachomatis Ampl DNA Pending HIV 1&2 Antibody Screen HIV P24 Antigen N. gonorrhoeae ([facility]) Pending 04/25/17 04/25/17 04/26/17 10:30 21:10 07:50 ESR 43 H INR C-Reactive Protein Urine Blood 1+ H Ur Leukocyte Esterase Negative Urine RBC 2 Urine WBC 1 C.trachomatis Ampl DNA HIV 1&2 Antibody Screen Negative HIV P24 Antigen Negative N. gonorrhoeae ([facility]) Problem List - Problems (1) Fibroid uterus Code(s): D25.9 - LEIOMYOMA OF UTERUS, UNSPECIFIED Qualifiers: Uterine leiomyoma location: intramural Qualified Code(s): D25.1 - Intramural leiomyoma of uterus (2) Pelvic inflammatory disease (PID) Code(s): N73.9 - FEMALE PELVIC INFLAMMATORY DISEASE, UNSPECIFIED (3) Pelvic pain Code(s): R10.2 - PELVIC AND PERINEAL PAIN (4) Ruptured ovarian cyst Code(s): N83.209 - UNSPECIFIED OVARIAN CYST, UNSPECIFIED SIDE (5) Anovulatory amenorrhea Code(s): N91.2 - AMENORRHEA, UNSPECIFIED Assessment/Plan 41 yrs [id number] ectopic , 13 weeks amenorrhea, neg pregn test . Abd Ct scan & pelvic Us reports large ut 13.4x10.5 x11 cm, post 7.7 cm fibroid , enlarged compare to prior study in 04/2015 ( then 6.3cm fibroid) 2 cm unilocular ov cyst, free fluid in culde sac.Rt ovary not visualized Impression , enlarging Fibroid uterus , with anovulatory cycle , possible rupture ovarian cyst , cause of sudden pain & vomiting , until cyst fluid get absorbed pt may continue to have pain . wbc 13.0, esr 43, Creactive protein 15.8 in favor of Inflamatory process, possible PID , or possible fibroid degenration . Continue iV antibiotics( cefoxtin & doxycyclin ) , repeat cbc , esr & crp ct/gc cultures pending . after discharge pt will continue follow up with her final armature tester, repeat pelvic sono in 3 months
[2017-04-27] MEDS ORDERED: PT OWN MED DRAWER 7, Y5N ONE ×2 (02:50→14:23)
[2017-04-27] MEDS: CEFOXITIN SODIUM 2 GM in DEXTROSE 5%-WATER - 100 ML IVPB SCH ×2 (02:52→10:00)
[2017-04-27] MEDS: ACETAMINOPHEN 325 MG TABLET (FP) PO PRN (06:03)
[2017-04-27 08:23] LABS: MCH 31.1 pg (25.7-33.7); MEAN CELL VOLUME 88.8 fl (80-96); MEAN PLT VOLUME 7.7 fl (7.5-11.1); PLATELET COUNT 252 K/MM3 (134-434); WHITE BLOOD COUNT 7.7 K/mm3 (4.0-10.0)
--- NOTE | 2017-04-27 09:17 | PN ---
Progress Note (short form) - Note Progress Note: ID Marked subjective improvement of pain Afebrile Cefoxitin and doxycycline Abd Soft mild tenderness LLQ Laboratory Tests 04/25/17 04/25/17 04/25/17 00:20 06:45 06:45 WBC 13.0 H Hgb Plt Count ESR BUN 8 Creatinine 0.5 L C-Reactive Protein C.trachomatis Ampl DNA Pending HIV 1&2 Antibody Screen HIV P24 Antigen N. gonorrhoeae ([facility]SMAN) Pending 04/25/17 04/25/17 04/26/17 10:20 10:30 07:50 WBC Hgb Plt Count ESR 43 H BUN Creatinine C-Reactive Protein 15.8 H C.trachomatis Ampl DNA HIV 1&2 Antibody Screen Negative HIV P24 Antigen Negative N. gonorrhoeae (BOSSMAN) 04/27/17 07:20 WBC 7.7 D Hgb 11.8 Plt Count 252 ESR BUN Creatinine C-Reactive Protein C.trachomatis Ampl DNA HIV 1&2 Antibody Screen HIV P24 Antigen N. gonorrhoeae (BOSSMAN) Assessment If we were contemplating discharge could give doxycyline 100bid plus oral metronidazole 500mg bid 10days. Possibility of PID considered. Advise outptGYN follow up Rommel RUSSELL Problem List - Problems (1) Pelvic inflammatory disease (PID) Code(s): N73.9 - FEMALE PELVIC INFLAMMATORY DISEASE, UNSPECIFIED
[2017-04-27] MEDS: DOXYCYCLINE INJECTION 100 MG in DEXTROSE 5%-WATER - 100 ML IVPB SCH (10:00)
--- NOTE | 2017-04-27 13:42 | PN ---
Teaching Attending Note Name of Resident: Anca Sharp ATTENDING PHYSICIAN STATEMENT I saw and evaluated the patient. I reviewed the resident's note and discussed the case with the resident. I agree with the resident's findings and plan as documented. SUBJECTIVE:currently asymptomatic. pain resolved. denies CP, SOB,fever, chills, N/V/C/D OBJECTIVE: Last Vital Signs Temp Pulse Resp BP Pulse Ox 98.1 F 71 18 106/58 96 04/27/17 08:45 04/27/17 08:45 04/27/17 09:00 04/27/17 08:45 04/27/17 09:00 General NAD Abdomen soft ND/NT normoactive BS. no suprapubic tenderness ASSESSMENT AND PLAN: 41yo f wtih PMH multiple ectopic pregnancies presented to the ER with abdominal pain was admitted 1. SIRS likely due to pelvic pathology- high suspicion for ruptured ovarian cyst but cannot r/o PID. clinically improved. evaluated by CREAM BUYER who beleived to be from cyst vs degenerating fibroid. completed 3 days of Cefoxitin and doxy. will d/c on flagyl/doxy to complete 10 day course. will need to f/u with CREAM BUYER for repeat u/s in 3 months. STD testing still pending 2. SIRS- possible PID vs stress inflammatory induced. resolved 3. Proteinuria- likely dehydration component. resolved 4. DVT ppx- EAM 5. d/c home with abx to complete 10 day course
[2017-04-27 14:57] VITALS: BP 115/72; PULSE 81; TEMP 99.1
--- NOTE | 2017-04-27 17:59 | DS ---
Physical Exam: SUBJECTIVE: Patient seen and examined. . Today patient was sitting up comfortably in bed, and stated that she didn't have any abdominal pain. Denied any shortness of breath, fever, chills, headache. OBJECTIVE: Vital Signs Period Temp Pulse Resp BP Sys/Pettit Pulse Ox Last 24 Hr 98.1 F-99.5 F 71-88 18-21 102-115/58-72 96-96 PHYSICAL EXAM GENERAL: The patient is awake, alert, and fully oriented, in no acute distress. HEAD: Normal with no signs of trauma. EYES: PERRL, extraocular movements intact, sclera anicteric, conjunctiva clear. ENT: oropharynx clear without exudates, moist mucous membranes. NECK: Trachea midline, full range of motion, supple. LUNGS: Breath sounds equal, clear to auscultation bilaterally, no wheezes, no crackles, no accessory muscle use. HEART: Regular rate and rhythm, S1, S2 without murmur, rub or gallop. ABDOMEN: Soft, nontender, nondistended, normoactive bowel sounds, no guarding, no rebound, no hepatosplenomegaly, no masses. EXTREMITIES: 2+ posterior tibial pulses, warm, well-perfused, no edema. NEUROLOGICAL: Normal speech (Tunisian speaker) LABS Laboratory Tests 04/24/17 04/24/17 04/25/17 16:51 23:17 00:20 WBC 12.4 H 11.8 H Hgb Hct ESR Sodium Potassium BUN Creatinine Urine Protein Urine Blood Urine Urobilinogen Ur Leukocyte Esterase Urine WBC C.trachomatis Ampl DNA Pending HIV 1&2 Antibody Screen HIV P24 Antigen N. gonorrhoeae ([facility]OSSMAN) Pending 04/25/17 04/25/17 04/25/17 06:45 06:45 10:30 WBC 13.0 H Hgb Hct ESR Sodium 140 Potassium 4.7 D BUN 8 Creatinine 0.5 L Urine Protein Urine Blood Urine Urobilinogen Ur Leukocyte Esterase Urine WBC C.trachomatis Ampl DNA HIV 1&2 Antibody Screen Negative HIV P24 Antigen Negative N. gonorrhoeae (BOSSMAN) 04/25/17 04/26/17 04/27/17 21:10 07:50 07:20 WBC 7.7 D Hgb 11.8 Hct 33.7 ESR 43 H Sodium Potassium BUN Creatinine Urine Protein Negative Urine Blood 1+ H Urine Urobilinogen 4.0 e.u/dl H Ur Leukocyte Esterase Negative Urine WBC 1 C.trachomatis Ampl DNA HIV 1&2 Antibody Screen HIV P24 Antigen N. gonorrhoeae (BOSSMAN) Imaging results 04/24/2017: CT Abdomen and Pelvis -2 cm involuted ovarian cyst observed, small to moderate amount of free fluid noted in cul-de-sac -Compared to CT 05/17/15 larger spherical lesion in uterine body 9.1 cm now vs. 6.3 cm in past- leiomyoma -Diffuse hepatic steatosis also noted 04/24/2017: Ultrasound pelvic/bladder -7.7 cm uterine leiomyoma (increased in size since 2014), 2 cm unilocular L ovarian cyst seen HOSPITAL COURSE: Date of Admission:04/25/17 Date of Discharge: 04/27/17 Admitting diagnosis: SIRS secondary to pelvic pathology Pre-admission Course The patient is a 41 year old female(A4), with a significant past medical history of ovarian cysts and fibroids, who presented to the emergency department complaining of left lower quadrant pain for 1 day. She denies any vaginal bleeding, vaginal discharge, vaginal odor, dysuria, hematuria, frequency ,urgency, diarrhea, or constipation. ED course was significant for: CT scan abdomen and pelvis, ultrasound pelvis/ bladder Admission course Patient was evaluated for possible leiomyoma, pelvic inflammatory disease and ruptured ovarian cyst as causes of her pain. ID was consulted and recommended cefoxitin 2 grams IVPB and doxycycline 100 ml IVPB PID for PID coverage to complete the course for 10 days as outpatient. Patient also received Gonorrhea and chlymidia testing (results still pending). Gynecological evaluation revealed impression of enlarging fibroid uterus as well as possible rupture of ovarian cyst. Pain resulting from these entities may have caused her nausea. Dry Cans Back Tender recommended that patient follow up with her nursing service administrator and get a repeat pelvic sonogram in 3 months to check for any changes in her condition. Minutes to complete discharge: 35 Discharge Summary Reason For Visit: CYST ON OVARY/ABD PAIN Current Active Problems Abdominal pain (Acute) Fibroid uterus (Acute) Pelvic pain (Acute) Ruptured ovarian cyst (Acute) Condition: Stable - Instructions Diet, Activity, Other Instructions: Follow-up with your primary care physician in 1 week, and with your nursing service administrator or with Dr. Garcia, the nursing service administrator who saw you in the hospital in 1 week. We suggest a pelvic sonogram in 3 months at [facility] so they can check the progress of your condition. You are being started on antibiotics- please complete the entire course of the following medications for 10 days: One Doxycycline tablet 100 mg tablet twice a day One Metronidazole 500mg tablet twice a day Referrals: Jessy Richter MD [Staff Physician] - (Resistor Inspector, please call if you can not follow up with yours in 3 months) Haylee Whyte [Primary Care Provider] - Disposition: HOME - Home Medications Comprehensive Discharge Medication List: Ambulatory Orders Doxycycline Hyclate 100 mg PO BID #20 capsule 04/27/17 Metronidazole [Flagyl -] 500 mg PO BID #20 tablet 04/27/17 This patient is new to me today: Yes Date on this admission: 04/27/17 Emergency Visit: No Critical Care patient: No - Discharge Referral Referred to [facility] No
== END 2017-04-27 15:55 | disposition home or self-care (01) | DRG 531 ==
LOC: JER 14:27 → JERBED 04-25 → OBSVTOIN 04-25 00:20 → J6S 04-25 01:56
PROVIDERS: ADMIT Internal Medicine; ATTEND Internal Medicine
DX: N73.9 Female pelvic inflammatory disease, unspecified (principal); N83.209 Unspecified ovarian cyst, unspecified side; D25.9 Leiomyoma of uterus, unspecified; R31.9 Hematuria, unspecified
CPT/HCPCS: 36415; 74177-TC; 76856-TC; 80053; 81003; 81015; 83605; 83735; 84443; 84703; 85025; 85027; 85610; 85651; 86140; 87040; 87086; 87389; 87491; 87591; 99285-25; G0378

== ENCOUNTER 2017-04-29 17:11 | Emergency (ER) | payer SELFPAY ==
[2017-04-29 17:15] VITALS: BMI 28.8
[2017-04-29] MEDS ORDERED: KETOROLAC TROMETHAMINE 30 MG/1 ML VIAL IVPUSH ONE (18:41)
[2017-04-29] MEDS ORDERED: SODIUM CHLORIDE 500 ML IV STA (18:42)
[2017-04-29] MEDS ORDERED: KETOROLAC TROMETHAMINE 30 MG/1 ML VIAL ONE (18:47)
[2017-04-29 19:18] LABS: BASOPHIL 0.9 % (0-2.0); EOSINOPHIL 1.2 % (0-4.5); MCH 30.4 pg (25.7-33.7); MCHC 34.2 g/dl (32.0-36.0); MEAN CELL VOLUME 88.9 fl (80-96); MEAN PLT VOLUME 7.1 fl (7.5-11.1); NEUTROPHILS 75.7 % (42.8-82.8); PLATELET COUNT 383 K/MM3 (134-434); RDW 12.1 % (11.6-15.6); WHITE BLOOD COUNT 8.7 K/mm3 (4.0-10.0)
[2017-04-29 19:22] LABS: URINE APPEARANCE CLEAR; URINE BILIRUBIN NEGATIVE (NEGATIVE); URINE COLOR LT. YELLOW; URINE GLUCOSE (UA) NEGATIVE (NEGATIVE); URINE KETONE NEGATIVE (NEGATIVE); URINE NITRITE NEGATIVE (NEGATIVE); URINE PROTEIN NEGATIVE (NEGATIVE); URINE UROBILINOGEN 0.2 E.U/dl E.U./dl (0.2-1.0)
[2017-04-29 19:24] LABS: URINE BLOOD 2+ (NEGATIVE); URINE LEUK ESTERASE TRACE (NEGATIVE)
[2017-04-29 19:25] LABS: URINE MUCUS RARE; URINE RBC 14 /hpf (0-3); URINE WBC 2 /hpf (3-5)
[2017-04-29 20:05] LABS: ALBUMIN 3.4 g/dl (3.4-5.0); ANION GAP 7 (8-16); CALCIUM 8.9 mg/dL (8.5-10.1); CO2 28 mmol/L (21-32); CREATININE 0.7 mg/dL (0.55-1.02); GLUCOSE,RANDOM 104 mg/dL (74-106); SGOT/AST 32 U/L (15-37); SGPT/ALT 32 U/L (12-78)
[2017-04-29 20:06] LABS: ALK PHOS 85 U/L (45-117); BILIRUBIN,TOTAL 0.3 mg/dL (0.2-1.0); TOT PROT 7.5 g/dl (6.4-8.2)
--- NOTE | 2017-04-29 21:00 | PDOC ---
History of Present Illness - General History Source: Patient, Old Records Exam Limitations: No Limitations - History of Present Illness Initial Comments: 04/29/17 21:01 The patient is a 41 year old female (A4), with a significant past medical history of ovarian cysts and fibroids, who presents to the emergency department with abdominal pain, nausea, vaginal bleeding and urgency. She reports that her abdominal pain is localized on the left lower quadrant, rating it a 8/10 in severity. She denies any radiation or modifying factors. She notes that her vaginal bleeding is intermittent in nature and denies any vaginal discharge. She also reports fever and chills associated with her chief complaint. The patient was recently admitted on 04/24/2017 for Fibroid uterus, Cystitis, Ovarian cyst, Abdominal pain and Free fluid in pelvis and was discharged on 2016 after improvement of symptoms. The patient denies chest pain, shortness of breath, headache and dizziness. Denies vomit, diarrhea and constipation. Denies dysuria and frequency. LMP: 01/17/2017 Allergies: None Past surgical history: None reported Social history: No alcohol, tobacco or drug use reported <Sky Ceja - Last Filed: 04/29/17 21:01> <Silver Frias - Last Filed: 04/29/17 23:03> - General Chief Complaint: Pain Stated Complaint: STOMACH PAIN Time Seen by Provider: 04/29/17 18:25 Past History <Sky Ceja - Last Filed: 04/29/17 21:01> - Past Medical History Suicide Attempt (Hx): No Other medical history: NONE - Reproductive History (#): 5 Para: 1 Cervical CA: No Dysfunctional Uterine Bleeding: No Ectopic : No Endometrial CA: No Polycystic Ovaries: No Therapeutic (s) & number: No Tubal Ligation: No Spontaneous : 4 - Immunization History Td Vaccination: Yes Immunization Up to Date: Yes - Psycho/Social/Smoking Cessation Hx Anxiety: No Suicidal Ideation: No Smoking Status: No Smoking History: Never smoked Have you smoked in the past 12 months: No Number of Cigarettes Smoked Daily: 0 Cigars Per Day: 0 Hx Alcohol Use: No Drug/Substance Use Hx: No Substance Use Type: None <Silver Frias - Last Filed: 04/29/17 23:03> - Past Medical History Allergies/Adverse Reactions: Allergies Allergy/AdvReac Type Severity Reaction Status Date / Time No Known Allergies Allergy Verified 04/29/17 17:15 Home Medications: Ambulatory Orders Doxycycline Hyclate 100 mg PO BID #20 capsule 04/27/17 Metronidazole [Flagyl -] 500 mg PO BID #20 tablet 04/27/17 Ibuprofen 600 mg PO TID #30 tablet 04/29/17 Review of Systems - Review of Systems Able to Perform ROS?: Yes Comments:: 04/29/17 21:01 CONSTITUTIONAL: (+) Fever, chills. No fatigue EYES: No visual changes ENT: No ear pain, no sore throat CARDIOVASCULAR: No chest pain, no palpitations RESPIRATORY: No cough, no SOB GI: (+) Nausea, abdominal pain. No diarrhea, constipation, no diarrhea GENITOURINARY: (+) Vaginal bleeding and urgency. No dysuria, no frequency MUSKULOSKELETAL: No backpain, no joint pain, no myalgias SKIN: No rash NEURO: No headache <Sky Ceja - Last Filed: 04/29/17 21:01> *Physical Exam - Vital Signs Last Vital Signs Temp Pulse Resp BP Pulse Ox 100.1 F H 87 18 115/71 99 04/29/17 17:11 04/29/17 17:11 04/29/17 17:11 04/29/17 17:11 04/29/17 19:16 - Physical Exam Comments: 04/29/17 21:01 CONSTITUTIONAL: Well-appearing; well-nourished; in no apparent distress HEAD: Normocephalic; atraumatic EYES: PERRL; EOM intact ENMT: External appears normal; normal oropharynx NECK: Supple; non-tender; no cervical lymphadenopathy CARD: Normal S1, S2; no murmurs, rubs, or gallops RESP: Normal chest excursion with respiration; breath sounds clear and equal bilaterally; no wheezes, rhonchi, or rales ABD: (+) Left lower pelvic tenderness. Soft, non-distended; no palpable organomegaly, no palpable hernias EXT: Normal ROM in all four extremities; non-tender to palpation; distal pulses intact SKIN: Warm, dry, no rash NEURO: No focal neurological deficiencies. <Sky Ceja - Last Filed: 04/29/17 21:01> - Vital Signs Last Vital Signs Temp Pulse Resp BP Pulse Ox 100.1 F H 87 18 115/71 99 04/29/17 17:11 04/29/17 17:11 04/29/17 17:11 04/29/17 17:11 04/29/17 19:16 <Silver Frias - Last Filed: 04/29/17 23:03> ED Treatment Course - LABORATORY CBC & Chemistry Diagram: 04/29/17 18:44 04/29/17 19:00 - ADDITIONAL ORDERS Additional order review: Laboratory Results 04/29/17 04/29/17 19:00 18:44 Sodium 139 Potassium 4.5 Chloride 104 Carbon Dioxide 28 D Anion Gap 7 L BUN 12 D Creatinine 0.7 D Creat Clearance w eGFR > 60 Random Glucose 104 Calcium 8.9 D Total Bilirubin 0.3 D AST 32 D ALT 32 D Alkaline Phosphatase 85 D Total Protein 7.5 D Albumin 3.4 D Urine Color Lt. yellow Urine Appearance Clear Urine pH 6.0 Urine Protein Negative Urine Glucose (UA) Negative Urine Ketones Negative Urine Blood 2+ H Urine Nitrite Negative Urine Bilirubin Negative Urine Urobilinogen 0.2 e.u/dl Ur Leukocyte Esterase Trace H Urine RBC 14 Urine WBC 2 Ur Epithelial Cells Rare Urine Mucus Rare Urine HCG, Qual Negative 04/29/17 18:44 RBC 4.26 MCV 88.9 MCHC 34.2 RDW 12.1 MPV 7.1 L Neutrophils % 75.7 Lymphocytes % 18.0 D Monocytes % 4.2 Eosinophils % 1.2 D Basophils % 0.9 - Medications Given in the ED: ED Medications Discontinued Medications Generic Name Dose Route Start Last Admin Trade Name Yasir PRN Reason Stop Dose Admin Sodium Chloride 500 mls @ 500 mls/hr 04/29/17 18:42 04/29/17 19:02 Normal Saline - IV 04/29/17 19:41 500 mls/hr ASDIR STA Administration Ketorolac Tromethamine 30 mg 04/29/17 18:41 04/29/17 19:02 Toradol Injection - IVPUSH 04/29/17 18:42 30 mg ONCE ONE Administration <Sky Ceja - Last Filed: 04/29/17 21:01> - LABORATORY CBC & Chemistry Diagram: 04/29/17 18:44 04/29/17 19:00 - ADDITIONAL ORDERS Additional order review: Laboratory Results 04/29/17 04/29/17 19:00 18:44 Sodium 139 Potassium 4.5 Chloride 104 Carbon Dioxide 28 D Anion Gap 7 L BUN 12 D Creatinine 0.7 D Creat Clearance w eGFR > 60 Random Glucose 104 Calcium 8.9 D Total Bilirubin 0.3 D AST 32 D ALT 32 D Alkaline Phosphatase 85 D Total Protein 7.5 D Albumin 3.4 D Urine Color Lt. yellow Urine Appearance Clear Urine pH 6.0 Urine Protein Negative Urine Glucose (UA) Negative Urine Ketones Negative Urine Blood 2+ H Urine Nitrite Negative Urine Bilirubin Negative Urine Urobilinogen 0.2 e.u/dl Ur Leukocyte Esterase Trace H Urine RBC 14 Urine WBC 2 Ur Epithelial Cells Rare Urine Mucus Rare Urine HCG, Qual Negative 04/29/17 18:44 RBC 4.26 MCV 88.9 MCHC 34.2 RDW 12.1 MPV 7.1 L Neutrophils % 75.7 Lymphocytes % 18.0 D Monocytes % 4.2 Eosinophils % 1.2 D Basophils % 0.9 - RADIOLOGY Radiology Studies Ordered: Category Date Time Status TRANSVAGINAL ULTRASOUND US [US] Stat Ultrasound 04/29/17 20:46 Ordered - Medications Given in the ED: ED Medications Discontinued Medications Generic Name Dose Route Start Last Admin Trade Name Freq PRN Reason Stop Dose Admin Sodium Chloride 500 mls @ 500 mls/hr 04/29/17 18:42 04/29/17 19:02 Normal Saline - IV 04/29/17 19:41 500 mls/hr ASDIR STA Administration Ketorolac Tromethamine 30 mg 04/29/17 18:41 04/29/17 19:02 Toradol Injection - IVPUSH 04/29/17 18:42 30 mg ONCE ONE Administration <Silver Frias - Last Filed: 04/29/17 23:03> Medical Decision Making - Medical Decision Making 04/29/17 20:58 Patient is a well-appearing 41-year-old female with history of the left ovarian cyst and posterior uterine fibroid who is currently being treated with Flagyl and doxycycline as an outpatient for suspected PID presents with persistent, intermittent left lower pelvic pain, low-grade fever and hematuria. In the ER, patient is awake and alert, nontoxic-appearing, with mild to moderate left lower pelvic tenderness to palpation without guarding rebound, without CVA tenderness bilaterally. We'll administer fluids, IV Toradol, will repeat CBC/CMP /UA. Will repeat transvaginal ultrasound to evaluate for torsion. Likely discharge. 04/29/17 23:00 Patient reassessed. Patient is resting comfortably, and is pain free. Abdominal exam reveals minimal left lower pelvic tenderness to deep palpation only. Repeat Transvaginal ultrasound shows no evidence of TOA, left ovarian cyst is noted. Patient advised to continue her antibiotic therapy as prescribed and will be discharged with high-dose ibuprofen for pain. <Silver Frias - Last Filed: 04/29/17 23:03> *DC/Admit/Observation/Transfer - Attestations Scribe Attestion: 04/29/17 21:02 Documentation prepared by Sky Ceja, acting as medical billing service for Silver Frias MD <Sky Ceja - Last Filed: 04/29/17 21:01> - Attestations Physician Attestion: 04/29/17 20:58 The documentation was prepared by the scribe under my direct supervision. I have reviewed the documentation which correctly represents the findings, medical decision-making and critical action taken by me. <Silver Frias - Last Filed: 04/29/17 23:03> Diagnosis at time of Disposition: Ovarian cyst Abdominal pain Qualifiers: Abdominal location: left lower quadrant Qualified Code(s): R10.32 - Left lower quadrant pain - Discharge Dispostion Disposition: HOME Condition at time of disposition: Stable - Referrals Referrals: Jessy Richter MD [Staff Physician] - - Patient Instructions Printed Discharge Instructions: DI for Abdominal Pain-Adult, DI for Ovarian Cyst Print Language: MONGOLIAN
[2017-04-29] MEDS ORDERED: ONDANSETRON 4 MG/2 ML VIAL IVPUSH ONE (23:01)
[2017-04-29 23:28] VITALS: BP 117/74; PULSE 81; TEMP 98.9
[2017-04-29] MEDS ORDERED: ONDANSETRON 4 MG/2 ML VIAL ONE (23:31)
== END 2017-04-29 23:33 | disposition home or self-care (01) ==
LOC: JER 17:11
PROC: 3E0333Z Introduction of Anti-inflammatory into Peripheral Vein, Percutaneous Approach (ICD-10-PCS; principal; 2017-04-29)
PROC: 3E033GC Introduction of Other Therapeutic Substance into Peripheral Vein, Percutaneous Approach (ICD-10-PCS; 2017-04-29)
DX: N83.202 Unspecified ovarian cyst, left side (principal)
CPT/HCPCS: 36415; 76830-TC; 80053; 81003; 81015; 84703; 85025; 87086; 99284-25

== ENCOUNTER 2018-09-07 15:53 | Emergency (ER) | payer OTHER ==
[2018-09-07 16:27] VITALS: BP 115/66; PULSE 80; TEMP 99.3; BMI 29.0
[2018-09-07] MEDS ORDERED: ONDANSETRON *ODT* 4 MG TABLET SL ONE (17:28)
[2018-09-07] MEDS ORDERED: ONDANSETRON *ODT* 4 MG TABLET ONE (17:29)
--- NOTE | 2018-09-07 17:31 | PDOC ---
History of Present Illness - General Chief Complaint: Nausea/Vomiting Stated Complaint: VOMITING,NAUSEA Time Seen by Provider: 09/07/18 17:25 - History of Present Illness Initial Comments: 09/07/18 17:28 43-year-old female presents for evaluation of vomiting. She has no systemic symptoms however she was given a prescription for hydrocodone because of the dental surgery she undergone yesterday. She states she is not any pain at the moment and does not require the medicine. 5 episodes of emesis today Past History - Past Medical History Allergies/Adverse Reactions: Allergies Allergy/AdvReac Type Severity Reaction Status Date / Time No Known Allergies Allergy Verified 05/17/18 16:18 Home Medications: Ambulatory Orders NK [No Known Home Medication] 05/17/18 COPD: No - Reproductive History (#): 5 Para: 1 Cervical CA: No Dysfunctional Uterine Bleeding: No Ectopic : No Endometrial CA: No Polycystic Ovaries: No Therapeutic (s) & number: No Tubal Ligation: No Spontaneous : 4 - Immunization History Td Vaccination: Yes Immunization Up to Date: Yes - Suicide/Smoking/Psychosocial Hx Smoking Status: No Smoking History: Never smoked Have you smoked in the past 12 months: No Number of Cigarettes Smoked Daily: 0 Cigars Per Day: 0 Information on smoking cessation initiated: No Hx Alcohol Use: No Drug/Substance Use Hx: No Substance Use Type: None Review of Systems - Review of Systems ABD/GI: Yes: Nausea, Vomiting *Physical Exam - Vital Signs Last Vital Signs Temp Pulse Resp BP Pulse Ox 99.3 F 80 17 115/66 100 09/07/18 16:24 09/07/18 16:24 09/07/18 16:24 09/07/18 16:24 09/07/18 16:24 - Physical Exam Comments: 09/07/18 17:29 HEAD: NC/AT EYES: Conjuntiva clear Ears: Canals and TM's normal NOSE: No d/c THROAT: Moist mucous membrances, oral pharanx clear, uvula midline NECK: Supple without adenopathy CARDIAC: S1 S2 LUNGS: CTA Full and Equal breath sounds ABDOMEN: Soft NT ND MS: Full ROM in all joints without edema NEUROLOGIC: No gross sensory or motor deficits, NVID SKIN: Normal color and temperature no lesions or rashes Medical Decision Making - Medical Decision Making 09/07/18 17:29 No colic induced emesis I've advised her to discontinue the narcotic and switch to Motrin return to the emergency room should symptoms worsen treated her nausea with Zofran *DC/Admit/Observation/Transfer Diagnosis at time of Disposition: Narcotic-induced nausea and vomiting - Discharge Dispostion Disposition: HOME Condition at time of disposition: Stable Decision to Admit order: No - Referrals Referrals: Jessy Cuevas I, RES [Resident] - Keaton Chilel ACNP [Nurse Practitioner] - Gavi Howard MD [Non Staff, Medical] - Nick Lyons [Non Staff, Medical] - Nayeli Brantley NP [Nurse Practitioner] - Brittany Swan RES [Resident] - Bubba Keyes RES [Resident] - Alan Hargrove MD [Non Staff, Medical] - Keri Berger RES [Resident] - - Patient Instructions Printed Discharge Instructions: DI for Vomiting -- Adult Additional Instructions: Please discontinue the pain medication you were given by her dentist return to the emergency room should symptoms worsen and follow-up with her primary care physician one to 2 days he may switch to Tylenol and Motrin for pain - Post Discharge Activity
== END 2018-09-07 17:33 | disposition home or self-care (01) ==
LOC: JER 15:53
DX: R11.2 Nausea with vomiting, unspecified (principal); T40.2X5A Adverse effect of other opioids, initial encounter; Y92.038 Other place in apartment as the place of occurrence of the external cause
CPT/HCPCS: 99281-25; Q0162

== ENCOUNTER 2018-10-21 14:43 | Emergency (ER) | payer OTHER ==
[2018-10-21 14:47] VITALS: BP 127/83; PULSE 88; TEMP 98.4; BMI 30.9
[2018-10-21] MEDS ORDERED: IBUPROFEN 600 MG TABLET (FP) PO ONE (14:57)
[2018-10-21] MEDS ORDERED: IBUPROFEN 400 MG TABLET (FP) PO ONE (14:59)
--- NOTE | 2018-10-21 15:01 | PDOC ---
History of Present Illness - General Chief Complaint: Sore Throat Stated Complaint: HEADACHE, BODYACHES Time Seen by Provider: 10/21/18 14:45 History Source: Patient Exam Limitations: No Limitations - History of Present Illness Initial Comments: 10/21/18 14:58 c/o sore throat headache fever for 4 days neg nvd. no meds taken today pt has no pmhx or allergies. Past History - Past Medical History Allergies/Adverse Reactions: Allergies Allergy/AdvReac Type Severity Reaction Status Date / Time No Known Allergies Allergy Verified 05/17/18 16:18 Home Medications: Ambulatory Orders Ibuprofen 800 mg PO TID PRN #21 tablet 10/21/18 COPD: No - Reproductive History (#): 5 Para: 1 Cervical CA: No Dysfunctional Uterine Bleeding: No Ectopic : No Endometrial CA: No Polycystic Ovaries: No Therapeutic (s) & number: No Tubal Ligation: No Spontaneous : 4 - Immunization History Td Vaccination: Yes Immunization Up to Date: Yes - Suicide/Smoking/Psychosocial Hx Smoking Status: No Smoking History: Never smoked Have you smoked in the past 12 months: No Number of Cigarettes Smoked Daily: 0 Cigars Per Day: 0 Hx Alcohol Use: No Drug/Substance Use Hx: No Substance Use Type: None Review of Systems - Review of Systems Able to Perform ROS?: Yes Is the patient limited [place] proficient: Yes Constitutional: Yes: Symptoms Reported, Fever HEENTM: Yes: Symptoms Reported, Throat Pain Respiratory: No: Symptoms reported Cardiac (ROS): No: Symptoms Reported ABD/GI: No: Symptoms Reported : No: Symptoms Reported Musculoskeletal: No: Symptoms Reported *Physical Exam - Vital Signs Last Vital Signs Temp Pulse Resp BP Pulse Ox 98.4 F 88 18 127/83 100 10/21/18 14:45 10/21/18 14:45 10/21/18 14:45 10/21/18 14:45 10/21/18 14:45 - Physical Exam General Appearance: Yes: Nourished, Appropriately Dressed HEENT: positive: EOMI, FLIP, Pharyngeal Erythema, Tonsillar Erythema. negative : Tonsillar Exudate Neck: positive: Supple. negative: Tender, Lymphadenopathy (R) Respiratory/Chest: positive: Lungs Clear, Normal Breath Sounds. negative: Chest Tender Cardiovascular: positive: Regular Rhythm, Regular Rate Musculoskeletal: positive: Normal Inspection Extremity: positive: Normal Capillary Refill, Normal Inspection, Normal Range of Motion Integumentary: positive: Normal Color, Dry, Warm Neurologic: positive: Fully Oriented, Alert, Normal Mood/Affect, Normal Response , Motor Strength 5/5 Moderate Sedation - Procedure Monitoring Vital Signs: Procedure Monitoring Vital Signs Temperature 98.4 F 10/21/18 14:45 Pulse Rate 88 10/21/18 14:45 Respiratory Rate 18 10/21/18 14:45 Blood Pressure 127/83 10/21/18 14:45 O2 Sat by Pulse Oximetry (%) 100 10/21/18 14:45 Medical Decision Making - Medical Decision Making 10/21/18 15:00 cc: sore throat fever for 4 days headache neg nvd will check for strep motrin now 10/21/18 15:47 negative for strep will dc home supportive cares *DC/Admit/Observation/Transfer Diagnosis at time of Disposition: Pharyngitis Qualifiers: Pharyngitis/tonsillitis etiology: unspecified etiology Qualified Code(s): J02.9 - Acute pharyngitis, unspecified - Discharge Dispostion Disposition: HOME Condition at time of disposition: Fair - Prescriptions Prescriptions: Ibuprofen 800 mg PO TID PRN #21 tablet PRN Reason: Pain - Referrals - Patient Instructions Printed Discharge Instructions: DI for Viral Pharyngitis Additional Instructions: gargle with warm salt water 4-5 times a day tea with honey and lemon take ibuprofen 800mg every 8hrs for pain follow with your doctor tomorrow Return to ER for any worsening symptoms Jhony grgaras con agua salada tibia 4-5 veces al da[address] te con miel y jose rena ibuprofeno 800 mg cada 8 horas para el dolor sigue con tu doctor maana Regrese a la [place] de emergencias por cualquier empeoramiento de los sntomas. Print Language: UKRAINIAN - Post Discharge Activity
== END 2018-10-21 15:53 | disposition home or self-care (01) ==
LOC: JERFT 14:43
DX: J02.9 Acute pharyngitis, unspecified (principal)
CPT/HCPCS: 87070; 87880; 99281-25

== ENCOUNTER 2018-10-24 21:06 | Emergency (ER) | payer OTHER ==
[2018-10-24 21:15] VITALS: BP 136/75; PULSE 76; TEMP 98.6; BMI 27.0
[2018-10-24] MEDS ORDERED: DEXAMETHASONE 4 MG TABLET (FP) PO ONE (22:18)
--- NOTE | 2018-10-24 22:19 | PDOC ---
History of Present Illness - General Chief Complaint: Sore Throat Stated Complaint: FEVER Time Seen by Provider: 10/24/18 22:13 History Source: Patient Exam Limitations: No Limitations - History of Present Illness Initial Comments: 10/24/18 22:27 HISTORY OF PRESENT ILLNESS: 43-year-old woman without significant medical history presents emergency department for evaluation of sore throat and fevers for one week. Patient reports she was seen and evaluated here on 10/21 was told she had a viral pharyngitis is concerned that her symptoms have not resolved. Patient is been taking Motrin as prescribed which has helped with her fevers but she continues to have some pain. She denies any chest pain, shortness of breath, headaches, dizziness, nausea, vomiting. No recent travel or sick contacts. PAST MEDICAL HISTORY: Denies past medical history SURGICAL HISTORY: Denies ALLERGIES: No known drug allergies REVIEW OF SYSTEMS General/Constitutional: +fever. Denies chills. Denies weakness, weight change. HEENT: Denies change in vision. Denies ear pain or discharge. +sore throat. Cardiovascular: Denies chest pain or shortness of breath. Respiratory: Denies cough, wheezing, or hemoptysis. Gastrointestinal: Denies nausea, vomiting, diarrhea or constipation. Denies rectal bleeding. Genitourinary: Denies dysuria, frequency, or change in urination. Musculoskeletal: Denies joint or muscle swelling or pain. Denies neck or back pain. Skin and breasts: Denies rash or easy bruising. Neurologic: Denies headache, vertigo, loss of consciousness, or loss of sensation. Psychiatric: Denies depression or anxiety. Endocrine: Denies increased thirst. Denies abnormal weight change. Hematologic/Lymphatic: Denies anemia, easy bleeding, or history of blood clots. Allergic/Immunologic: Denies hives or skin allergy. Denies latex allergy. PHYSICAL EXAM General Appearance: Well-appearing, appropriately dressed. No apparent distress , no intoxication. HEENT: EOMI, PERRLA, normal voice, TMs normal. No conjunctival pallor. No photophobia, scleral icterus. Oropharynx is erythematous without lesions or exudate present Neck: Supple. Trachea midline. No tenderness, rigidity, carotid bruit, stridor , lymphadenopathy, or thyromegaly. Respiratory/Chest: Lungs CTAB. No shortness of breath, chest tenderness, respiratory distress, accessory muscle use. No crackles, rales, rhonchi, stridor , wheezing, dullness Cardiovascular: RRR. S1, S2. No JVD, murmur, bradycardia, tachycardia. Gastrointestinal/Abdominal: Normal bowel sounds. Abdomen soft, non-distended. No tenderness or rebound tenderness. No organomegaly, pulsatile mass, guarding, hernia, hepatomegaly, splenomegaly. 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 Fully oriented, alert. Appropriate mood/affect. Motor strength 5/5. No appreciable EOM palsy, facial droop or sensory deficit. 10/24/18 22:32 Past History - Past Medical History Allergies/Adverse Reactions: Allergies Allergy/AdvReac Type Severity Reaction Status Date / Time No Known Allergies Allergy Verified 10/24/18 21:16 Home Medications: Ambulatory Orders Ibuprofen 800 mg PO TID PRN #21 tablet 10/21/18 COPD: No - Reproductive History (#): 5 Para: 1 Cervical CA: No Dysfunctional Uterine Bleeding: No Ectopic : No Endometrial CA: No Polycystic Ovaries: No Therapeutic (s) & number: No Tubal Ligation: No Spontaneous : 4 - Immunization History Td Vaccination: Yes Immunization Up to Date: Yes - Suicide/Smoking/Psychosocial Hx Smoking Status: No Smoking History: Never smoked Have you smoked in the past 12 months: No Number of Cigarettes Smoked Daily: 0 Cigars Per Day: 0 Hx Alcohol Use: No Drug/Substance Use Hx: No Substance Use Type: None *Physical Exam - Vital Signs Last Vital Signs Temp Pulse Resp BP Pulse Ox 98.6 F 76 18 136/75 100 10/24/18 21:11 10/24/18 21:11 10/24/18 21:11 10/24/18 21:11 10/24/18 21:11 Moderate Sedation - Procedure Monitoring Vital Signs: Procedure Monitoring Vital Signs Temperature 98.6 F 10/24/18 21:11 Pulse Rate 76 10/24/18 21:11 Respiratory Rate 18 10/24/18 21:11 Blood Pressure 136/75 10/24/18 21:11 O2 Sat by Pulse Oximetry (%) 100 10/24/18 21:11 Medical Decision Making - Medical Decision Making 10/24/18 22:27 A/P: 43-year-old female with sore throat for one week TMs within normal limits bilaterally Oropharynx erythematous without lesions or exudates present No cervical lymphadenopathy present. Lungs clear to auscultation bilaterally Normoactive bowel sounds Abdomen soft nontender nondistended Patient was seen here and had a negative rapid strep testing performed on . Patient continues to have viral pharyngitis. I will give the patient 10 mg Decadron orally now and discharge home to continue taking Motrin as previously prescribed. I discussed the physical exam findings, ancillary test results and final diagnoses with the patient. I answered all of the patient's questions. The patient was satisfied with the care received and felt comfortable with the discharge plan and treatment plan. The patient will call their primary care physician within 24 hours to arrange follow-up and will return to the Emergency Department with any new, persistent or worsening symptoms. *DC/Admit/Observation/Transfer Diagnosis at time of Disposition: Viral pharyngitis - Discharge Dispostion Disposition: HOME Condition at time of disposition: Stable Decision to Admit order: No - Referrals - Patient Instructions Additional Instructions: Rest, drink lots of fluids: Teas, water, soups, Pedialyte Saltwater gargles Steamy showers/seem to face break up mucus Avoid contact with others until fevers have resolved Lots of handwashing and good hygiene Continue [id number] medications for symptomatic relief Tylenol or Motrin for fever and pain Followup with private physician in one to 2 days as needed Return to emergency department for worsened symptoms, fevers, dehydration - Post Discharge Activity
[2018-10-24] MEDS ORDERED: DEXAMETHASONE 4 MG TABLET (FP) ONE (22:26)
== END 2018-10-24 22:34 | disposition home or self-care (01) ==
LOC: JERFT 21:06
DX: J02.9 Acute pharyngitis, unspecified (principal); B97.89 Other viral agents as the cause of diseases classified elsewhere
CPT/HCPCS: 99281-25

== ENCOUNTER 2019-03-18 18:50 | Emergency (ER) | payer OTHER ==
[2019-03-18 18:54] VITALS: BMI 28.3
--- NOTE | 2019-03-18 18:54 | PDOC ---
Rapid Medical Evaluation Time Seen by Provider: 03/18/19 18:51 Medical Evaluation: Allergies Allergy/AdvReac Type Severity Reaction Status Date / Time No Known Allergies Allergy Verified 10/24/18 21:16 03/18/19 18:51 I have performed a brief in-person evaluation of this patient. The patient presents with a chief complaint of: c/o chills, nausea, diarrhea x3 , fever, abdominal pain since yesterday. denies vomiting. denies recent travel. hx of . Pertinent physical exam findings: well appearing, nontender abdomen, no cva tenderness. temp 99.9. I have ordered the following: labs, iv, urine The patient will proceed to the ED for further evaluation.
[2019-03-18 19:24] LABS: BASO % 0.5 % (0-2.0); EOS % 0.5 % (0-4.5); HEMATOCRIT 39.6 % (32.4-45.2); HEMOGLOBIN 13.6 GM/dL (10.7-15.3); LYMPH % 31.9 % (8-40); MCH 30.5 pg (25.7-33.7); MCHC 34.4 g/dl (32.0-36.0); MEAN CELL VOLUME 88.5 fl (80-96); MEAN PLT VOLUME 8.3 fl (7.5-11.1); NEUT % 62.1 % (42.8-82.8); PLATELET COUNT 237 K/MM3 (134-434); RBC 4.47 M/mm3 (3.60-5.2); RDW 12.4 % (11.6-15.6); WHITE BLOOD COUNT 4.4 K/mm3 (4.0-10.0)
--- NOTE | 2019-03-18 19:35 | PDOC ---
History of Present Illness <Diana Oliveros - Last Filed: 03/18/19 21:47> - History of Present Illness Initial Comments: The pt is a 43F w/ a history of fibroids no reported PMH who presents for evaluation of 2 days of abdominal pain w/ associated nausea and NB diarrhea. The pain is right periumbilical, intermittent, cramping, not exacerbated by anything she can identify, is mildly alleviated by BM. She tried taking ibuprofen with minimal relief. She endorses subjective fevers and nausea. She denies new foods or sick contacts, [place], vision changes, chest pain, SOB, vomiting, dysuria, hematuria, blood in her stool, or changes in sensation. States that she no longer has menses PMH: uterine fibroids PSH: C/S x1 Meds: Denies Allergies: Denies PMD: Dr. So 03/18/19 19:58 <Hermelindo Bennett - Last Filed: 03/18/19 22:08> - General Chief Complaint: Pain Stated Complaint: FEVER NAUSEA, abd pain Time Seen by Provider: 03/18/19 18:51 Past History <Diana Oliveros - Last Filed: 03/18/19 21:47> - Past Medical History COPD: No - Reproductive History (#): 5 Para: 1 Cervical CA: No Dysfunctional Uterine Bleeding: No Ectopic : No Endometrial CA: No Polycystic Ovaries: No Therapeutic (s) & number: No Tubal Ligation: No Spontaneous : 4 - Immunization History Td Vaccination: Yes Immunization Up to Date: Yes - Suicide/Smoking/Psychosocial Hx Smoking Status: No Smoking History: Never smoked Have you smoked in the past 12 months: No Number of Cigarettes Smoked Daily: 0 Cigars Per Day: 0 Information on smoking cessation initiated: No Hx Alcohol Use: No Drug/Substance Use Hx: No Substance Use Type: None <Hermelindo Bennett - Last Filed: 03/18/19 22:08> - Past Medical History Allergies/Adverse Reactions: Allergies Allergy/AdvReac Type Severity Reaction Status Date / Time No Known Allergies Allergy Verified 03/18/19 18:54 Home Medications: Ambulatory Orders Ibuprofen 800 mg PO TID PRN #21 tablet 10/21/18 Ondansetron [Zofran Odt -] 4 mg SL TID PRN #10 od.tablet 03/18/19 Review of Systems - Review of Systems Able to Perform ROS?: Yes Comments:: GENERAL/CONSTITUTIONAL: No fever or chills. No weakness HEAD, EYES, EARS, NOSE AND THROAT: No change in vision. No ear pain or discharge. No sore throat CARDIOVASCULAR: No chest pain or shortness of breath RESPIRATORY: Denies cough, hemoptysis GASTROINTESTINAL: No vomiting GENITOURINARY: No dysuria, frequency, or change in urination MUSCULOSKELETAL: No joint or muscle swelling or pain. No neck or back pain SKIN: No rash NEUROLOGIC: No headache, vertigo, loss of consciousness, or change in strength/ sensation ENDOCRINE: No increased thirst. No abnormal weight change HEMATOLOGIC/LYMPHATIC: No anemia, easy bleeding, or history of blood clots ALLERGIC/IMMUNOLOGIC: No hives or skin allergy 03/18/19 19:34 Is the patient limited Maltese proficient: No <Hermelindo Bennett - Last Filed: 03/18/19 22:08> *Physical Exam - Vital Signs Last Vital Signs Temp Pulse Resp BP Pulse Ox 99.9 F H 91 H 18 108/66 100 03/18/19 18:52 03/18/19 18:52 03/18/19 18:52 03/18/19 18:52 03/18/19 18:52 <Diana Oliveros - Last Filed: 03/18/19 21:47> - Vital Signs Last Vital Signs Temp Pulse Resp BP Pulse Ox 99.9 F H 91 H 18 108/66 100 03/18/19 18:52 03/18/19 18:52 03/18/19 18:52 03/18/19 18:52 03/18/19 18:52 - Physical Exam Comments: GENERAL: Awake, alert, and oriented to person/place/time, in no acute distress HEAD: No signs of trauma, normocephalic, atraumatic EYES: PERRLA, EOMI, sclera anicteric, conjunctiva clear ENT: Hearing grossly normal, nares patent, oropharynx clear without exudates. Moist mucosa LUNGS: No distress, speaks full sentences, clear to auscultation bilaterally HEART: Regular rate and rhythm, normal S1 and S2, no murmurs appreciated, peripheral pulses normal and equal bilaterally ABDOMEN: Soft, non-distended, suprapubic TTP (reported as chronic and unchanged) , pain is not worsened w/ palpation periumbilically, no rebound or guarding EXTREMITIES: Normal inspection, Normal range of motion, no edema. No clubbing or cyanosis NEUROLOGICAL: Cranial nerves II through XII grossly intact. Normal speech, no focal sensorimotor deficits SKIN: Warm, Dry 03/18/19 19:34 <Hermelindo Bennett - Last Filed: 03/18/19 22:08> ED Treatment Course - LABORATORY CBC & Chemistry Diagram: 03/18/19 19:10 03/18/19 19:10 - ADDITIONAL ORDERS Additional order review: Laboratory Results 03/18/19 03/18/19 03/18/19 19:49 19:10 19:10 Sodium 136 Potassium 3.6 Chloride 104 Carbon Dioxide 26 Anion Gap 6 L BUN 12 Creatinine 0.8 Est GFR (CKD-EPI)AfAm 103.19 Est GFR (CKD-EPI)NonAf 89.04 Random Glucose 114 H Calcium 8.2 L Total Bilirubin 0.8 AST 54 H ALT 98 H Alkaline Phosphatase 82 Total Protein 7.2 Albumin 3.9 Lipase 130 Urine Color Yellow Urine Appearance Clear Urine pH 6.0 Ur Specific [place] 1.008 L Urine Protein Negative Urine Glucose (UA) Negative Urine Ketones Negative Urine Blood 1+ H Urine Nitrite Negative Urine Bilirubin Negative Urine Urobilinogen 1.0 Ur Leukocyte Esterase Negative Urine WBC (Auto) 0 Urine RBC (Auto) 2 Urine Casts (Auto) 1 U Epithel Cells (Auto) 2.0 Urine Bacteria (Auto) 31.6 03/18/19 19:10 RBC 4.47 MCV 88.5 MCHC 34.4 RDW 12.4 MPV 8.3 D Neutrophils % 62.1 Lymphocytes % 31.9 D Monocytes % 5.0 Eosinophils % 0.5 Basophils % 0.5 - Medications Given in the ED: ED Medications Discontinued Medications Generic Name Dose Route Start Last Admin Trade Name Freq PRN Reason Stop Dose Admin Acetaminophen 1,000 mg 03/18/19 20:00 03/18/19 20:24 Ofirmev Injection - IVPB 03/18/19 20:01 1,000 mg ONCE ONE Administration Al Hydroxide/Mg Hydroxide 30 ml 03/18/19 19:58 03/18/19 20:23 Mylanta Suspension - PO 03/18/19 19:59 30 ml ONCE ONE Administration Famotidine/Sodium Chloride 20 mg in 50 mls @ 100 mls/hr 03/18/19 19:58 20:24 Pepcid 20 Mg Premixed Ivpb - IVPB 03/18/19 20:27 100 mls/hr ONCE ONE Administration Ondansetron HCl 4 mg 03/18/19 19:58 03/18/19 20:24 Zofran Injection IVPUSH 03/18/19 19:59 4 mg ONCE ONE Administration Sodium Chloride 1,000 ml 03/18/19 19:57 03/18/19 20:23 Normal Saline - IV 03/18/19 19:58 1,000 ml ONCE ONE Administration <Diana Oliveros - Last Filed: 03/18/19 21:47> - LABORATORY CBC & Chemistry Diagram: 03/18/19 19:10 03/18/19 19:10 - ADDITIONAL ORDERS Additional order review: 03/18/19 19:10 RBC 4.47 MCV 88.5 MCHC 34.4 RDW 12.4 MPV 8.3 D Neutrophils % 62.1 Lymphocytes % 31.9 D Monocytes % 5.0 Eosinophils % 0.5 Basophils % 0.5 <Hermelindo Bennett - Last Filed: 03/18/19 22:08> Medical Decision Making - Medical Decision Making ED Course CMP, CBC, Lipase Zofran, Ofirmev, Pepcid, and Maalox for symptomatic relief IVF 03/18/19 20:03 03/18/19 20:04 <Hermelindo Bennett - Last Filed: 03/18/19 22:08> *DC/Admit/Observation/Transfer - Discharge Dispostion Decision to Admit order: No <Diana Oliveros - Last Filed: 03/18/19 21:47> <Hermelindo Bennett - Last Filed: 03/18/19 22:08> Diagnosis at time of Disposition: Nausea Abdominal pain Qualifiers: Abdominal location: periumbilical Qualified Code(s): R10.33 - Periumbilical pain Diarrhea Qualifiers: Diarrhea type: unspecified type Qualified Code(s): R19.7 - Diarrhea, unspecified - Discharge Dispostion Disposition: HOME Condition at time of disposition: Improved - Prescriptions Prescriptions: Ondansetron [Zofran Odt -] 4 mg SL TID PRN #10 od.tablet PRN Reason: Nausea And/Or Vomiting - Referrals Referrals: David oS MD [Primary Care Provider] - - Patient Instructions Printed Discharge Instructions: DI for Food Poisoning Print Language: LEBANESE - Post Discharge Activity
[2019-03-18 19:53] LABS: ALBUMIN 3.9 g/dl (3.4-5.0); BILIRUBIN,TOTAL 0.8 mg/dL (0.2-1); CALCIUM 8.2 mg/dL (8.5-10.1); CREATININE 0.8 mg/dL (0.55-1.3); POTASSIUM 3.6 mmol/L (3.5-5.1); TOT PROT 7.2 g/dl (6.4-8.2)
[2019-03-18] MEDS ORDERED: SODIUM CHLORIDE 0.9% 500 ML INFUS.BAG IV ONE (19:57)
[2019-03-18] MEDS ORDERED: MAG HYDROX/AL HYDROX/SIMETH -MYLANTA- ORAL SUSPENSION PO ONE (19:58)
[2019-03-18] MEDS ORDERED: ONDANSETRON 4 MG/2 ML VIAL IVPUSH ONE (19:58)
[2019-03-18] MEDS ORDERED: FAMOTIDINE 20 MG/50 ML IVPB 20 MG/50 ML MG IVPB ONE ×2 (19:58→20:14)
[2019-03-18] MEDS ORDERED: ACETAMINOPHEN 1000 MG/100 ML VIAL (NON FORMULARY) IVPB ONE (20:00)
[2019-03-18] MEDS ORDERED: MAG HYDROX/AL HYDROX/SIMETH 30 ML UNIT-DOSE CUP ONE (20:14)
[2019-03-18] MEDS ORDERED: ACETAMINOPHEN INJECTION 100 ML IVPB ONE (20:14)
[2019-03-18] MEDS ORDERED: ONDANSETRON 4 MG/2 ML VIAL ONE (20:14)
[2019-03-18 21:19] LABS: HYALINE CASTS 1 /lpf (0-8); URINE APPEARANCE CLEAR; URINE BACTERIA 31.6 /hpf (NEGATIVE); URINE BILIRUBIN NEGATIVE (NEGATIVE); URINE COLOR YELLOW; URINE GLUCOSE (UA) NEGATIVE (NEGATIVE); URINE KETONE NEGATIVE (NEGATIVE); URINE LEUK ESTERASE NEGATIVE (NEGATIVE); URINE NITRITE NEGATIVE (NEGATIVE); URINE PROTEIN NEGATIVE (NEGATIVE); URINE RBC 2 /hpf (0-4); URINE WBC 0 /hpf (0-5)
[2019-03-18 21:59] VITALS: BP 104/53; PULSE 84; TEMP 98.1
--- NOTE | 2019-03-18 23:53 | PDOC ---
Documentation entered by Luis Armando Mcgee SCRIBE, acting as scribe for Diana Oliveros MD. Diana Oliveros MD: This documentation has been prepared by the wellingtone, Luis Armando Mcgee SCRIBE, under my direction and personally reviewed by me in its entirety. I confirm that the documentation accurately reflects all work, treatment, procedures, and medical decision making performed by me. Attending Attestation - Resident Resident Name: Hermelindo Bennett - ED Attending Attestation I have performed the following: I have examined & evaluated the patient, The case was reviewed & discussed with the resident, I agree w/resident's findings & plan - HPI HPI: 03/18/19 20:22 The patient is a 43 year old female with a significant past medical history of fibroids who presents to the emergency department with 2 days of left lower quadrant abdominal pain . The patient reports some associated nausea and diarrhea ( 3x -non bloody) and fever with her LLQ pain. The patient states that she had some flavored milk coffee this morning and contributes her symptoms to that. The patient She states that she has taken advil at home with minimal relief. She denies an new foods, sick contact, recent travel, chest pain , shortness or breath. It is noted that the patient lmp was Oct (2018). The patient denies any other symptoms or complaints. - Physicial Exam PE: 03/18/19 22:03 HEAD: No signs of trauma EYES: PERRLA, EOMI, sclera anicteric, conjunctiva clear ENT: Auricles normal inspection, hearing grossly normal, nares patent, oropharynx clear without exudates. Moist mucosa NECK: Normal ROM, supple, no lymphadenopathy, JVD, or masses LUNGS: Breath sounds equal, clear to auscultation bilaterally. No wheezes, and no crackles HEART: Regular rate and rhythm, normal S1 and S2, no murmurs, rubs or gallops ABDOMEN: (+)LLQ and RLQ pain with palpation. Soft,normoactive bowel sounds. No guarding, no rebound. No masses. No flank pain EXTREMITIES: Normal range of motion, no edema. No clubbing or cyanosis. No cords, erythema, or tenderness NEUROLOGICAL: Cranial nerves II through XII grossly intact. Normal speech, normal gait SKIN: Warm, Dry, normal turgor, no rashes or lesions noted. - Medical Decision Making 03/19/19 01:51 Pt feeling better. She has no ovarian masses and her labs are normal. She has known fibroids that were seen in the ER.
== END 2019-03-18 22:04 | disposition home or self-care (01) ==
LOC: JER 18:50
PROC: 3E033GC Introduction of Other Therapeutic Substance into Peripheral Vein, Percutaneous Approach (ICD-10-PCS; principal; 2019-03-18)
PROC: 3E033GC Introduction of Other Therapeutic Substance into Peripheral Vein, Percutaneous Approach (ICD-10-PCS; 2019-03-18)
PROC: 3E033NZ Introduction of Analgesics, Hypnotics, Sedatives into Peripheral Vein, Percutaneous Approach (ICD-10-PCS; 2019-03-18)
DX: R10.33 Periumbilical pain (principal); R11.0 Nausea; R19.7 Diarrhea, unspecified
CPT/HCPCS: 36415; 76830-TC; 80053; 81003; 83690; 85025; 87086; 99282-25; J0131

== ENCOUNTER 2019-10-18 10:37 | Emergency (ER) | payer OTHER ==
[2019-10-18 10:55] VITALS: BP 111/59; PULSE 96; TEMP 101.4; BMI 24.0
[2019-10-18] MEDS ORDERED: IBUPROFEN 600 MG TABLET (FP) PO ONE ×2 (10:58→11:48)
--- NOTE | 2019-10-18 11:00 | PDOC ---
History of Present Illness - General Chief Complaint: Cold Symptoms Stated Complaint: FEVER/COUGH Time Seen by Provider: 10/18/19 10:58 - History of Present Illness Initial Comments: 10/18/19 10:59 CHIEF COMPLAINT: flu symptoms HISTORY OF PRESENT ILLNESS: 44 yo F with x of fibroids presents to [facility] with cough and fever since last night. Patient reports taking Nyquil last night with minimal relief. Denies abd pain, vomiting, diarrhea. No recent travel or sick contacts. PAST MEDICAL HISTORY: fibroids FAMILY HISTORY: Denies SOCIAL HISTORY: Denies tobacco, alcohol, illicit drug use. SURGICAL HISTORY: Denies ALLERGIES: No known drug allergies REVIEW OF SYSTEMS General/Constitutional: Subjective fever. Denies weakness, weight change. HEENT: Denies change in vision. Denies ear pain or discharge. Denies sore throat. Cardiovascular: Denies chest pain or shortness of breath. Respiratory: Cough. Denies wheezing, or hemoptysis. Gastrointestinal: Denies nausea, vomiting, diarrhea or constipation. Denies rectal bleeding. Genitourinary: Denies dysuria, frequency, or change in urination. Musculoskeletal: Denies joint or muscle swelling or pain. Denies neck or back pain. Skin and breasts: Denies rash or easy bruising. Neurologic: Denies headache, vertigo, loss of consciousness, or loss of sensation. Psychiatric: Denies depression or anxiety. PHYSICAL EXAM General Appearance: Well-appearing, appropriately dressed. No apparent distress , no intoxication. HEENT: EOMI, PERRLA, normal ENT inspection, normal voice, TMs normal, pharynx normal. No conjunctival pallor. No photophobia, scleral icterus. Neck: Supple. Trachea midline. No tenderness, rigidity, carotid bruit, stridor , lymphadenopathy, or thyromegaly. Respiratory/Chest: Lungs CTAB. No shortness of breath, chest tenderness, respiratory distress, accessory muscle use. No crackles, rales, rhonchi, stridor , wheezing, dullness Cardiovascular: RRR. S1, S2. No JVD, murmur, bradycardia, tachycardia. Vascular Pulses: Dorsalis-Pedis (R): 2+, Dorsalis-Pedis (L): 2+ Gastrointestinal/Abdominal: Normal bowel sounds. Abdomen soft, non-distended. No tenderness or rebound tenderness. No organomegaly, pulsatile mass, guarding , hernia, hepatomegaly, splenomegaly. Lymphatic: No adenopathy, tenderness. Musculoskeletal/Extremities: Normal inspection. FROM of all extremities, normal capillary refill. Pelvis Stable. No CVA tenderness. No tenderness to extremities, pedal edema, swelling, erythema or deformity. Integumentary: Appropriate color, dry, warm. 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 Fully oriented, alert. Appropriate mood/affect. Motor strength 5/5. No appreciable EOM palsy, facial droop or sensory deficit. Past History - Past Medical History Allergies/Adverse Reactions: Allergies Allergy/AdvReac Type Severity Reaction Status Date / Time No Known Allergies Allergy Verified 03/18/19 18:54 Home Medications: Ambulatory Orders Ibuprofen 800 mg PO TID PRN #21 tablet 10/21/18 Ondansetron [Zofran Odt -] 4 mg SL TID PRN #10 od.tablet 03/18/19 Metoclopramide HCl [Reglan] 10 mg PO BID #10 tablet 03/19/19 Benzonatate [Tessalon Perle -] 100 mg PO TID #21 capsule 10/18/19 Ibuprofen 600 mg PO QID #30 tablet 10/18/19 Pseudoephedrine HCl [Pseudoephedrine ER] 120 mg PO BID #20 tablet.er 10/18/19 COPD: No - Reproductive History (#): 5 Para: 1 Cervical CA: No Dysfunctional Uterine Bleeding: No Ectopic : No Endometrial CA: No Polycystic Ovaries: No Therapeutic (s) & number: No Tubal Ligation: No Spontaneous : 4 - Immunization History Td Vaccination: Yes Immunization Up to Date: Yes - Psycho Social/Smoking Cessation Hx Smoking Status: No Smoking History: Never smoked Have you smoked in the past 12 months: No Number of Cigarettes Smoked Daily: 0 Cigars Per Day: 0 Information on smoking cessation initiated: No Hx Alcohol Use: No Drug/Substance Use Hx: No Substance Use Type: None *Physical Exam - Vital Signs Last Vital Signs Temp Pulse Resp BP Pulse Ox 101.4 F H 96 H 16 111/59 L 98 10/18/19 10:52 10/18/19 10:52 10/18/19 10:52 10/18/19 10:52 10/18/19 10:52 Medical Decision Making - Medical Decision Making 10/18/19 11:29 44 yo F with x of fibroids presents to [facility] with cough and fever since last night. -flu swab -motnieves 10/18/19 11:57 flu negative. Discharge - Discharge Information Problems reviewed: Yes Clinical Impression/Diagnosis: URI (upper respiratory infection) Condition: Stable Disposition: HOME - Admission No - Additional Discharge Information Prescriptions: Benzonatate [Tessalon Perle -] 100 mg PO TID #21 capsule Ibuprofen 600 mg PO QID #30 tablet Pseudoephedrine HCl [Pseudoephedrine ER] 120 mg PO BID #20 tablet.er - Follow up/Referral Referrals: Darren Spence MD [Staff Physician] - - Patient Discharge Instructions Patient Printed Discharge Instructions: DI for Viral Upper Respiratory Infection -- Adult Additional Instructions: Please follow up with your primary care doctor within the next week for continued monitoring and evaluation of your symptoms. If you develop persistent fever, worsening cough, chills, vomiting, or diarrhea, please return to the ER. - Post Discharge Activity
== END 2019-10-18 12:12 | disposition home or self-care (01) ==
LOC: JERFT 10:37
DX: J06.9 Acute upper respiratory infection, unspecified (principal); Z86.2 Personal history of diseases of the blood and blood-forming organs and certain disorders involving the immune mechanism
CPT/HCPCS: 87804; 99281-25

== ENCOUNTER 2019-12-28 18:14 | Emergency (ER) | payer SELFPAY ==
[2019-12-28 18:25] VITALS: BP 133/78; PULSE 90; TEMP 98.1; BMI 27.9
--- NOTE | 2019-12-28 19:11 | PDOC ---
History of Present Illness - General Chief Complaint: Sore Throat Stated Complaint: SORE THROAT COUGHING Time Seen by Provider: 12/28/19 19:04 History Source: Patient - History of Present Illness Timing/Duration: reports: other Past History - Past Medical History Allergies/Adverse Reactions: Allergies Allergy/AdvReac Type Severity Reaction Status Date / Time No Known Allergies Allergy Verified 12/28/19 18:25 Home Medications: Ambulatory Orders Ibuprofen 800 mg PO TID PRN #21 tablet 10/21/18 Ondansetron [Zofran Odt -] 4 mg SL TID PRN #10 od.tablet 03/18/19 Metoclopramide HCl [Reglan] 10 mg PO BID #10 tablet 03/19/19 Benzonatate [Tessalon Perle -] 100 mg PO TID #21 capsule 10/18/19 Ibuprofen 600 mg PO QID #30 tablet 10/18/19 Pseudoephedrine HCl [Pseudoephedrine ER] 120 mg PO BID #20 tablet.er 10/18/19 COPD: No - Reproductive History (#): 5 Para: 1 Cervical CA: No Dysfunctional Uterine Bleeding: No Ectopic : No Endometrial CA: No Polycystic Ovaries: No Therapeutic (s) & number: No Tubal Ligation: No Spontaneous : 4 - Immunization History Td Vaccination: Yes Immunization Up to Date: Yes - Psycho Social/Smoking Cessation Hx Smoking Status: No Smoking History: Never smoked Have you smoked in the past 12 months: No Number of Cigarettes Smoked Daily: 0 Cigars Per Day: 0 Information on smoking cessation initiated: No Hx Alcohol Use: No Drug/Substance Use Hx: No Substance Use Type: None Review of Systems - Review of Systems Constitutional: Yes: Weakness. No: Fever HEENTM: No: Ear Pain, Throat Pain Respiratory: Yes: Cough. No: Shortness of Breath Cardiac (ROS): No: Chest Pain *Physical Exam - Vital Signs Last Vital Signs Temp Pulse Resp BP Pulse Ox 98.1 F 90 18 133/78 98 12/28/19 18:23 12/28/19 18:23 12/28/19 18:23 12/28/19 18:23 12/28/19 18:23 - Physical Exam General Appearance: Yes: Appropriately Dressed. No: Apparent Distress HEENT: positive: Normal ENT Inspection, Normal Voice, TMs Normal, Pharynx Normal. negative: Scleral Icterus (R), Scleral Icterus (L) Neck: positive: Supple. negative: Lymphadenopathy (R), Lymphadenopathy (L) Respiratory/Chest: positive: Lungs Clear, Normal Breath Sounds. negative: Respiratory Distress Cardiovascular: positive: Regular Rate, S1, S2 Integumentary: positive: Dry, Warm Neurologic: positive: Fully Oriented, Alert, Normal Mood/Affect Medical Decision Making - Medical Decision Making 12/28/19 19:08 44-year-old female, denies any past medical history, here with dry cough and weakness x 3-4 days. No shortness of breath, chest pain, body aches, headache fever or chills. No recent travel and no known sick contacts. Well-appearing and stable with unremarkable exam. Most likely viral. DC with supportive treatment Discharge - Discharge Information Problems reviewed: Yes Clinical Impression/Diagnosis: Cough Condition: Good Disposition: HOME - Follow up/Referral Referrals: David So MD [Primary Care Provider] - - Patient Discharge Instructions Patient Printed Discharge Instructions: Common Cold - Post Discharge Activity Work/Back to School Note: Back to Work
== END 2019-12-28 19:23 | disposition home or self-care (01) ==
LOC: JERFT 18:14
DX: R05 Cough (principal)
CPT/HCPCS: 99281-25